=== PATIENT | male | born 1970 | race Caucasian/White ===

== ENCOUNTER → 2016-04-20 | Day surgery (SDC) | payer OTHER ==
[2016-04-04 10:11] VITALS: Ht 179.1 cm; Wt 95.5 kg
[~2016-04-20] VITALS: Ht 179.1 cm; Wt 95.5 kg
[~2016-04-20] MED LIST: AMT24 PO; BACL10TA PO; BACLOFEN PUMP INT SPINAL; CHOLCAP10 PO; DULO60CA44 PO; GABA-112 PO; GABA-113 PO; MIDAZOLAM HCL 1 MG/ML 2ML VIAL ONE; OMEG10007 PO; OMEP20CA9 PO; PRAV40TA2 PO; PRLSR20 PO; PROB1TAB16 PO; SERT50TA PO; SODIUM CHLORIDE 0.9% 500ML 500 ML IV ONE
--- NOTE | 2016-04-20 16:13 | Endo History and Physical ---
History & Physical Date of Service: Apr 20, 2016. Chief Complaint: CHANGE IN BOWEL HABITS Referring Physician: DR ZHENG History of Present Illness 45 yo CM who presents for Colonoscopy secondary to change in bowel habits. Past Medical History Neurological Disorder, Osteoporosis, Arthritis, Gastrointestinal Disorder, High Cholesterol, Other, Depression Past Surgical History Hx Cardiac Surgery: No Hx Internal Defibrillator: No Hx Pacemaker: No Hx Abdominal Surgery: No Hx of Implantable Prosthesis: No Hx Post-Op Nausea and Vomiting: No Hx Cancer Surgery: No Hx Thoracic Surgery: No Hx Orthopedic: Yes (PUMP INSERTION) Hx Urinary Tract Surgery: No Family History Colon CA Social History Smoking Status: Former Smoker Hx Substance Use: No Hx Alcohol Use: Yes (OCCASIONAL) Allergies Coded Allergies: Gluten (Unverified Allergy, Mild, RASH, 04/20/16) Lactose Intolerance (GI) (Verified Allergy, Mild, GI Issues, 04/20/16) NO KNOWN DRUG ALLERGIES (Verified Allergy, Unknown, ., 04/20/16) Current Medications Reported Home Medications Medications Dose Route/Sig Max Daily Dose Days Date Category Dose Instructions Probiotic (Probiotic Product) 1 Tab Tab 1 Tab PO QAM 04/04/16 Reported Pravastatin Sodium 40 Mg Tab 1 Tab PO HS 04/04/16 Reported Amitiza (Lubiprostone) 24 Mcg Cap 24 Mcg PO BID 04/04/16 Reported Cymbalta (Duloxetine Hcl) 60 Mg Cap 60 Mg PO QAM 04/04/16 Reported D 5000 (Cholecalciferol) 5,000 Unit Cap 1 Tab PO QAM 04/04/16 Reported Neurontin (Gabapentin) 100 Mg Cap 1-2 Tabs PO HS PRN 11/10/15 Reported [Baclofen Pump] INT SPINAL DAILY 10/21/13 Reported [place]-3 (Fish Oil) 1 Ea Cap 3 Cap PO BID 05/02/13 Reported 1000mg caps Vital Signs Weight (Kilograms): 95.45 Height (Feet): 5 Height (Inches): 10.5 Date Time Temp Pulse Resp B/P Pulse Ox O2 Delivery O2 Flow Rate FiO2 04/20/16 15:34 36.6 71 18 142/80 100 Room Air Physical Exam General Appearance: WD/WN, no apparent distress Respiratory/Chest: Auscultation: breath sounds normal Cardiovascular: Heart Auscultation: RRR Abdomen: Bowel Sounds: normal Inspection & Palpation: soft, non-distended, no tenderness, guarding & rebound Assessment and Plan Assessment: 45 yo CM who presents for Colonoscopy secondary to change in bowel habits. Plan: Proceed with colonoscopy.
--- NOTE | 2016-04-20 16:34 | Discharge Instructions ---
Endoscopy Patient Instructions Date / Procedure(s) Performed Apr 20, 2016. Colonoscopy Allergy Information Coded Allergies: Gluten (Unverified Allergy, Mild, RASH, 04/20/16) Lactose Intolerance (GI) (Verified Allergy, Mild, GI Issues, 04/20/16) NO KNOWN DRUG ALLERGIES (Verified Allergy, Unknown, ., 04/20/16) Discharge Date / Findings Apr 20, 2016. Diverticulosis Internal hemorrhoids Medication Instructions OK to resume all medications today as prescribed Reported Home Medications Medications Dose Route/Sig Max Daily Dose Days Date Category Dose Instructions Probiotic (Probiotic Product) 1 Tab Tab 1 Tab PO QAM 04/04/16 Reported Pravastatin Sodium 40 Mg Tab 1 Tab PO HS 04/04/16 Reported Amitiza (Lubiprostone) 24 Mcg Cap 24 Mcg PO BID 04/04/16 Reported Cymbalta (Duloxetine Hcl) 60 Mg Cap 60 Mg PO QAM 04/04/16 Reported D 5000 (Cholecalciferol) 5,000 Unit Cap 1 Tab PO QAM 04/04/16 Reported Neurontin (Gabapentin) 100 Mg Cap 1-2 Tabs PO HS PRN 11/10/15 Reported [Baclofen Pump] INT SPINAL DAILY 10/21/13 Reported [place]-3 (Fish Oil) 1 Ea Cap 3 Cap PO BID 05/02/13 Reported 1000mg caps Provider Instructions Activity Restrictions - No exercising or heavy lifting for 24 hours. - Do not drink alcohol the day of the procedure. - Do not drive a car or operate machinery until the day after the procedure. - Do not make any important decisions or sign important papers in 24 hours after the procedure. Following Day: - Return to full activity which may include returning to work/school. Diet Start your diet with liquids and light foods (jello, soup, juice, toast). Then eat your usual diet if not nauseated. Treatment For Common After Affects For mild abdominal pain, bloating, or excessive gas: - Rest - Eat lightly - Lie on right side Follow-Up Information Follow-up with DR ZHENG as scheduled Anesthesia Information What You Should Know You have had a procedure that required some medicine to reduce anxiety and discomfort. This treatment is called moderate sedation. After receiving the treatment, you may be sleepy, but you will be able to breathe on your own. The effects of the treatment may last for several hours. Follow these instructions along with Activity/Diet recommendations noted above: * Do NOT do anything where dizziness or clumsiness would be dangerous. * Rest quietly at home today, then you can be up and about tomorrow. * Have a responsible person stay with you the rest of today. * You may have had an I.V. today. If so, you may take the dressing off later today. Recommendations Call your doctor if: * Trouble breathing * Continuous vomiting for more than 24 hours * Temperature above 101 degrees * Severe abdominal pain or bloating * Pain not relieved by pain medicine ordered * There is increased drainage or redness from any incision * A large amount of rectal bleeding greater than 2-3 tablespoons. (If you had a polyp/s removed or have hemorrhoids, a small amount of blood - from the rectum is to be expected.) * You have any unanswered questions or concerns. IN THE EVENT OF A SERIOUS EMERGENCY, GO TO THE NEAREST EMERGENCY ROOM Your discharge instructions were prepared by provider Michael Khan. Patient Instructions Signature Page [place] Patient (or Guardian) Signature/Date: I have read and understand the instructions given to me by my caregivers. Caregiver/RN/Doctor Signature/Date: The above-named patient and/or guardian has received patient instructions on this date. + Original Patient Signature Page (only) stays with chart. Please make copy for patient.
--- NOTE | 2016-04-20 16:36 | GI REPORT ---
Procedure Date: 04/20/2016 4:11 PM Procedure: Colonoscopy Indications: Change in bowel habits Medicines: Monitored Anesthesia Care Complications: No immediate complications. Estimated Blood Loss: Estimated blood loss: none. Procedure: Pre-Anesthesia Assessment: - Prior to the procedure, a History and Physical was performed, and patient medications and allergies were reviewed. The patient's tolerance of previous anesthesia was also reviewed. The risks and benefits of the procedure and the sedation options and risks were discussed with the patient. All questions were answered, and informed consent was obtained. Prior Anticoagulants: The patient has taken no previous anticoagulant or antiplatelet agents. ASA Grade Assessment: II - A patient with mild systemic disease. After reviewing the risks and benefits, the patient was deemed in satisfactory condition to undergo the procedure. After I obtained informed consent, the scope was passed under direct vision. Throughout the procedure, the patient's blood pressure, pulse, and oxygen saturations were monitored continuously. The Scope was introduced through the anus and advanced to the terminal ileum. The colonoscopy was performed without difficulty. The patient tolerated the procedure well. The quality of the bowel preparation was good. The terminal ileum, ileocecal valve, appendiceal orifice, and rectum were photographed. Findings: Multiple small-mouthed diverticula were found in the sigmoid colon. Non-bleeding internal hemorrhoids were found during retroflexion. The hemorrhoids were small. Impression: - Diverticulosis in the sigmoid colon. - Non-bleeding internal hemorrhoids. - No specimens collected. Recommendation: - Resume previous diet. - Continue present medications. - Repeat colonoscopy in 10 years for surveillance. - Return to primary care physician as previously scheduled. Michael Khan, DO 04/20/2016 4:35:39 PM This report has been signed electronically. Note Initiated On: 04/20/2016 4:11 PM
[2016-04-20 17:05] VITALS: BP 119/70; PULSE 74; O2SAT 99
--- NOTE | 2016-04-20 17:06 | Anesthesiology Progress Note ---
Anesthesia Post Op Note Date & Time Apr 20, 2016 at 17:05 Vital Signs Pain Intensity: 0 Vital Signs Past 12 Hours Date Time Temp Pulse Resp B/P Pulse Ox O2 Delivery O2 Flow Rate FiO2 04/20/16 16:50 71 18 125/73 96 Room Air 04/20/16 16:35 65 18 101/63 99 Room Air 04/20/16 15:34 36.6 71 18 142/80 100 Room Air Notes Mental Status: alert / awake / arousable, participated in evaluation Pt Amnestic to Procedure: Yes Nausea / Vomiting: adequately controlled Pain: adequately controlled Airway Patency, RR, SpO2: stable & adequate BP & HR: stable & adequate Hydration State: stable & adequate Anesthetic Complications: no major complications apparent
== END | disposition home or self-care (01) ==
LOC: C.GI 14:35
PROVIDERS: ATTEND Internal Medicine
DX: R19.4 Change in bowel habit (principal); K57.30 Diverticulosis of large intestine without perforation or abscess without bleeding; K64.8 Other hemorrhoids; M81.0 Age-related osteoporosis without current pathological fracture; M19.90 Unspecified osteoarthritis, unspecified site; E78.00 Pure hypercholesterolemia, unspecified; F32.9 Major depressive disorder, single episode, unspecified; Z87.891 Personal history of nicotine dependence

== ENCOUNTER → 2016-05-12 | Outpatient (CLI) | payer OTHER ==
[~2016-05-12] MED LIST changes: -MIDAZOLAM HCL 1 MG/ML 2ML VIAL ONE; -SODIUM CHLORIDE 0.9% 500ML 500 ML IV ONE
[2016-05-12 12:04] LABS: URINE APPEARANCE CLOUDY (CLEAR); URINE BILIRUBIN NEG (NEG); URINE COLOR YELLOW; URINE EPITHELIAL CELL AUTO >30 /lpf (0-5); URINE NITRITE NEG (NEG); URINE SPECIFIC GRAVITY 1.001 (1.000-1.030); UROBILINOGEN NEG (NEG); ZZUR CULT IF INDIC CLEAN CATCH NO
[2016-05-12 12:07] LABS: MANUAL MICROSCOPIC REQUIRED? NO; REVIEW REQ? YES
[2016-05-12 12:25] LABS: URINE MUCUS PRESENT (NONE PRSENT)
== END | disposition home or self-care (01) ==
LOC: C.LABSPEC 11:17
PROVIDERS: ATTEND Family Medicine
DX: R39.9 Unspecified symptoms and signs involving the genitourinary system (principal); G35 Multiple sclerosis; M62.838 Other muscle spasm; K59.00 Constipation, unspecified; R53.83 Other fatigue; E73.9 Lactose intolerance, unspecified

== ENCOUNTER → 2016-05-19 | Outpatient (CLI) | payer OTHER ==
[2016-05-19 13:24] LABS: URINE APPEARANCE CLEAR (CLEAR); URINE BILIRUBIN NEG (NEG); URINE COLOR YELLOW; URINE EPITHELIAL CELL AUTO 0-5 /lpf (0-5); URINE NITRITE NEG (NEG); URINE PH 5.5 (4.5-7.5); UROBILINOGEN NEG (NEG); ZZUR CULT IF INDIC CLEAN CATCH NO
[2016-05-19 13:33] LABS: MANUAL MICROSCOPIC REQUIRED? NO; REVIEW REQ? NO
== END | disposition home or self-care (01) ==
LOC: C.LAB1850 11:13
PROVIDERS: ATTEND Family Medicine
DX: R39.9 Unspecified symptoms and signs involving the genitourinary system (principal); G35 Multiple sclerosis; M62.838 Other muscle spasm; K59.00 Constipation, unspecified; R53.83 Other fatigue; E73.9 Lactose intolerance, unspecified

== ENCOUNTER → 2016-08-02 | Outpatient (CLI) | payer OTHER ==
[~2016-08-02] MED LIST changes: -AMT24 PO; +CEFD300C2 PO; +LRS10 PO; -PROB1TAB16 PO; +SERT-234 PO; +[UNRECOGNIZED DRUG - CODE] IT
--- NOTE | 2016-08-02 12:13 | DIAGNOSTIC IMAGING REPORT ---
NUCLEAR GASTRIC EMPTYING STUDY CLINICAL HISTORY: Abdominal bloating. COMPARISON STUDY: KUB dated 12/25/2014. TECHNIQUE: Following the oral administration of 1.1 mCi of technetium 99m sulfur colloid in egg sandwich and 8 ounces of water, static abdominal images are obtained anteriorly and posteriorly at 0 minutes, 1 hour, 2 hour, and 4 hour time intervals. Gastric emptying was calculated utilizing the geometric mean method. FINDINGS: There is approximately 71% activity remaining at the 1 hour time interval, 43% remaining at the 2 hour time interval (normal is less than 60%), and 1% activity remaining at the 4 hour time interval (normal is less than 10%). IMPRESSION: Findings are consistent with normal gastric emptying for solids. Electronically signed by: Rolan Quinonez M.D. 08/02/2016 12:11 PM Dictated Date/Time: 08/02/2016 12:07 PM
[2016-08-05 15:32] LABS: IGA SERUM 311 mg/dL (81-463); TIS TRANS IGA 1 U/mL (<4)
== END | disposition home or self-care (01) ==
LOC: C.NUCL 06:44
PROVIDERS: ATTEND Physician Assistant
DX: R14.0 Abdominal distension (gaseous) (principal); K59.09 Other constipation

== ENCOUNTER → 2016-08-17 | Day surgery (SDC) | payer OTHER ==
[2016-08-09 14:44] VITALS: Ht 179.1 cm; Wt 83.6 kg
[~2016-08-17] VITALS: Ht 179.1 cm; Wt 83.6 kg
[~2016-08-17] MED LIST changes: +FENTANYL CITRATE INJ 50 MCG/1 ML 2 ML VIAL ONE; -GABA-112 PO; +LIDOCAINE HCL 2% 2 ML VIAL (20MG/ML) ONE; -OMEG10007 PO; +PROPOFOL IV EMULSION 10 MG/ML 20 ML VIAL IV ONE; +SODIUM CHLORIDE 0.9% 500ML 500 ML IV ONE
--- NOTE | 2016-08-17 12:39 | Endo History and Physical ---
History & Physical Date of Service: August 17, 2016. Chief Complaint: Abdominal Bloating Referring Physician: Dr. Malone History of Present Illness 45 yo CM who presents for EGD secondary to abdominal bloating. Past Medical History Neurological Disorder, Osteoporosis, Arthritis, Gastrointestinal Disorder, High Cholesterol, Other, Depression Past Surgical History Hx Cardiac Surgery: No Hx Internal Defibrillator: No Hx Pacemaker: No Hx Abdominal Surgery: No Hx Post-Op Nausea and Vomiting: No Hx Cancer Surgery: No Hx Thoracic Surgery: No Hx Orthopedic: Yes (PUMP INSERTION) Hx Urinary Tract Surgery: No Family History Colon [place] Social History Smoking Status: Former Smoker Hx Substance Use: No Hx Alcohol Use: Yes (OCCASIONAL) Allergies Coded Allergies: Gluten (Verified Allergy, Mild, RASH, 08/17/16) Lactose Intolerance (GI) (Verified Allergy, Mild, GI Issues, 08/17/16) NO KNOWN DRUG ALLERGIES (Verified Allergy, Unknown, ., 08/17/16) Current Medications Reported Home Medications Medications Dose Route/Sig Max Daily Dose Days Date Category Neurontin (Gabapentin) 300 Mg Cap 300 Mg PO HS 08/09/16 Reported Pravastatin Sodium 40 Mg Tab 1 Tab PO HS 04/04/16 Reported Cymbalta (Duloxetine Hcl) 60 Mg Cap 60 Mg PO QAM 04/04/16 Reported D 5000 (Cholecalciferol) 5,000 Unit Cap 1 Tab PO QAM 04/04/16 Reported [Baclofen Pump] INT SPINAL DAILY 10/21/13 Reported Vital Signs Weight (Kilograms): 83.64 Height (Feet): 5 Height (Inches): 10.5 Date Time Temp Pulse Resp B/P Pulse Ox O2 Delivery O2 Flow Rate FiO2 08/17/16 12:12 36.7 79 16 122/83 98 Room Air Physical Exam General Appearance: WD/WN, no apparent distress Respiratory/Chest: Auscultation: breath sounds normal Cardiovascular: Heart Auscultation: RRR Abdomen: Bowel Sounds: normal Inspection & Palpation: soft, non-distended, no tenderness, guarding & rebound Assessment and Plan Assessment: 45 yo CM who presents for EGD secondary to abdominal bloating. Plan: Proceed with EGD.
--- NOTE | 2016-08-17 12:50 | Discharge Instructions ---
Endoscopy Patient Instructions Date / Procedure(s) Performed August 17, 2016. EGD Allergy Information Coded Allergies: Gluten (Verified Allergy, Mild, RASH, 08/17/16) Lactose Intolerance (GI) (Verified Allergy, Mild, GI Issues, 08/17/16) NO KNOWN DRUG ALLERGIES (Verified Allergy, Unknown, ., 08/17/16) Discharge Date / Findings August 17, 2016. Duodenitis s/p biopsies Gastritis s/p biopsies Medication Instructions 1) Start Omeprazole 20mg by mouth each morning 1/2 hour prior to breakfast. 2) OK to resume all medications today as prescribed. Reported Home Medications Medications Dose Route/Sig Max Daily Dose Days Date Category Neurontin (Gabapentin) 300 Mg Cap 300 Mg PO HS 08/09/16 Reported Pravastatin Sodium 40 Mg Tab 1 Tab PO HS 04/04/16 Reported Cymbalta (Duloxetine Hcl) 60 Mg Cap 60 Mg PO QAM 04/04/16 Reported D 5000 (Cholecalciferol) 5,000 Unit Cap 1 Tab PO QAM 04/04/16 Reported [Baclofen Pump] INT SPINAL DAILY 10/21/13 Reported Provider Instructions Activity Restrictions - No exercising or heavy lifting for 24 hours. - Do not drink alcohol the day of the procedure. - Do not drive a car or operate machinery until the day after the procedure. - Do not make any important decisions or sign important papers in 24 hours after the procedure. Following Day: - Return to full activity which may include returning to work/school. Diet Start your diet with liquids and light foods (jello, soup, juice, toast). Then eat your usual diet if not nauseated. Treatment For Common After Affects For mild abdominal pain, bloating, or excessive gas: - Rest - Eat lightly - Lie on right side Follow-Up Information Follow-up with Dr. Malone as scheduled Anesthesia Information What You Should Know You have had a procedure that required some medicine to reduce anxiety and discomfort. This treatment is called moderate sedation. After receiving the treatment, you may be sleepy, but you will be able to breathe on your own. The effects of the treatment may last for several hours. Follow these instructions along with Activity/Diet recommendations noted above: * Do NOT do anything where dizziness or clumsiness would be dangerous. * Rest quietly at home today, then you can be up and about tomorrow. * Have a responsible person stay with you the rest of today. * You may have had an I.V. today. If so, you may take the dressing off later today. Recommendations Call your doctor if: * Trouble breathing * Continuous vomiting for more than 24 hours * Temperature above 101 degrees * Severe abdominal pain or bloating * Pain not relieved by pain medicine ordered * There is increased drainage or redness from any incision * A large amount of rectal bleeding greater than 2-3 tablespoons. (If you had a polyp/s removed or have hemorrhoids, a small amount of blood - from the rectum is to be expected.) * You have any unanswered questions or concerns. IN THE EVENT OF A SERIOUS EMERGENCY, GO TO THE NEAREST EMERGENCY ROOM Your discharge instructions were prepared by provider Michael Khan. Patient Instructions Signature Page [place] Patient (or Guardian) Signature/Date: I have read and understand the instructions given to me by my caregivers. Caregiver/RN/Doctor Signature/Date: The above-named patient and/or guardian has received patient instructions on this date. + Original Patient Signature Page (only) stays with chart. Please make copy for patient.
--- NOTE | 2016-08-17 12:55 | GI REPORT ---
Procedure Date: 08/17/2016 12:33 PM Procedure: Upper GI endoscopy Indications: Abdominal bloating Medicines: Monitored Anesthesia Care Complications: No immediate complications. Estimated Blood Loss: Estimated blood loss: none. Procedure: Pre-Anesthesia Assessment: - Prior to the procedure, a History and Physical was performed, and patient medications and allergies were reviewed. The patient's tolerance of previous anesthesia was also reviewed. The risks and benefits of the procedure and the sedation options and risks were discussed with the patient. All questions were answered, and informed consent was obtained. Prior Anticoagulants: The patient has taken no previous anticoagulant or antiplatelet agents. ASA Grade Assessment: III - A patient with severe systemic disease. After reviewing the risks and benefits, the patient was deemed in satisfactory condition to undergo the procedure. After obtaining informed consent, the endoscope was passed under direct vision. Throughout the procedure, the patient's blood pressure, pulse, and oxygen saturations were monitored continuously. The scope was introduced through the mouth, and advanced to the second part of duodenum. The upper GI endoscopy was accomplished without difficulty. The patient tolerated the procedure well. Findings: The examined esophagus was normal. Localized mild inflammation characterized by erythema was found in the gastric antrum. Biopsies were taken with a cold forceps for histology. Localized mild inflammation characterized by erosions and erythema was found in the first part of the duodenum. Biopsies for histology were taken with a cold forceps for evaluation of celiac disease. Impression: - Normal esophagus. - Gastritis. Biopsied. - Duodenitis. Biopsied. Recommendation: - Resume previous diet. - Continue present medications. - Await pathology results. - Return to GI clinic as previously scheduled. Michael Khan, DO 08/17/2016 12:55:38 PM This report has been signed electronically. Note Initiated On: 08/17/2016 12:33 PM I attest to the content of the Intraoperative Record and orders documented therein, exceptions below
[2016-08-17 13:10] VITALS: BP 136/89; PULSE 78; O2SAT 98
--- NOTE | 2016-08-17 15:01 | Anesthesiology Progress Note ---
Anesthesia Post Op Note Date & Time August 17, 2016 at 15:00 Vital Signs Pain Intensity: 2 Vital Signs Past 12 Hours Date Time Temp Pulse Resp B/P Pulse Ox O2 Delivery O2 Flow Rate FiO2 08/17/16 13:10 78 16 136/89 98 Room Air 08/17/16 13:00 80 16 111/89 98 Room Air 08/17/16 12:50 90 16 112/75 96 Room Air 08/17/16 12:12 36.7 79 16 122/83 98 Room Air Notes Mental Status: alert / awake / arousable, participated in evaluation Pt Amnestic to Procedure: Yes Nausea / Vomiting: adequately controlled Pain: adequately controlled Airway Patency, RR, SpO2: stable & adequate BP & HR: stable & adequate Hydration State: stable & adequate Anesthetic Complications: no major complications apparent
== END | disposition home or self-care (01) ==
LOC: C.GI 11:52
PROVIDERS: ATTEND Internal Medicine
DX: K29.50 Unspecified chronic gastritis without bleeding (principal); K29.80 Duodenitis without bleeding; E78.00 Pure hypercholesterolemia, unspecified; F32.9 Major depressive disorder, single episode, unspecified; M81.0 Age-related osteoporosis without current pathological fracture; R29.818 Other symptoms and signs involving the nervous system; M19.90 Unspecified osteoarthritis, unspecified site; Z87.891 Personal history of nicotine dependence; Z79.899 Other long term (current) drug therapy

== ENCOUNTER → 2017-02-08 | Outpatient (CLI) | payer OTHER ==
[~2017-02-08] MED LIST changes: -CEFD300C2 PO; -CHOLCAP10 PO; -DULO60CA44 PO; -FENTANYL CITRATE INJ 50 MCG/1 ML 2 ML VIAL ONE; -GABA-113 PO; -LIDOCAINE HCL 2% 2 ML VIAL (20MG/ML) ONE; -LRS10 PO; -PRLSR20 PO; -PROPOFOL IV EMULSION 10 MG/ML 20 ML VIAL IV ONE; -SERT-234 PO; -SODIUM CHLORIDE 0.9% 500ML 500 ML IV ONE; -[UNRECOGNIZED DRUG - CODE] IT
--- NOTE | 2017-02-08 12:55 | DIAGNOSTIC IMAGING REPORT ---
R ELBOW MIN 3 VIEWS ROUTINE CLINICAL HISTORY: G35 Multiple [id number] Fall from wheelchairright trauma COMPARISON: None. DISCUSSION: Moderate degenerative change of the articular services throughout. No evidence for fracture or dislocation. Cortical margins appear to be intact. IMPRESSION: Moderate degenerative change. No acute process. The above report was generated using voice recognition software. It may contain grammatical, syntax or spelling errors. Electronically signed by: Ashwin Dewitt M.D. 02/08/2017 12:53 PM Dictated Date/Time: 02/08/2017 12:51 PM
== END | disposition home or self-care (01) ==
LOC: C.RADBC 12:38
PROVIDERS: ATTEND Internal Medicine
DX: G35 Multiple sclerosis (principal); W05.0XXA Fall from non-moving wheelchair, initial encounter

== ENCOUNTER 2017-03-04 20:29 | Emergency (ER) | payer OTHER ==
[~2017-03-04] VITALS: Ht 177.8 cm; Wt 75.0 kg
[2017-03-04 20:35] VITALS: TEMP 36.5; Ht 177.8 cm; Wt 75.0 kg
[2017-03-04 20:50] VITALS: O2SAT 100
--- NOTE | 2017-03-04 20:57 | EMERGENCY ROOM VISIT NOTE ---
History Report prepared by Gwendolyn: Roger Lyons Under the Supervision of: Dr. Rolan Waters M.D. First contact with patient: 20:45 Chief Complaint: RESPIRATORY PROBLEMS Stated Complaint: SHORTNESS OF BREATH, WOKE UP HOT Nursing Triage Summary: pt to triage via reports hx of MS and woke up this AM feeling increased difficulty breathing . pt reports on baclofen pump also History of Present Illness The patient is a 46 year old male who presents to the Emergency Room with complaints of constant SOB beginning this morning. The patient notes that his symptoms started this morning when he woke up and he feels like he cannot get enough air. He notes that he is on a Baclofen pump and just had the dosage of Baclofen increased 3 days ago. He also complains of lower back pain and face pain. He denies any cough, fever, urinary symptoms, vomiting, and diarrhea. He reports that he has MS and is immobile. He denies any history of blood clots, asthma, and COPD. Source of History: patient Onset: this morning Position: chest Quality: other (SOB) Timing: constant Associated Symptoms: + back pain (lower), No fevers, No cough, No vomiting, No diarrhea, No urinary symptoms Note: He also complains of facial pain. Review of Systems See HPI for pertinent positives & negatives. A total of 10 systems reviewed and were otherwise negative. Past Medical & Surgical Multiple sclerosis Family History No pertinent family history stated. Social History Smoking Status: Never Smoker Marital Status: Housing Status: lives with family Current/Historical Medications Scheduled Baclofen (Lioresal Intrathecal), 921.8 MCG IT Q24H Cefdinir (Omnicef), 300 MG PO Q12H Omeprazole (Prilosec), 1 CAP PO QAM Pravastatin Sodium (Pravastatin Sodium), 1 TAB PO HS Sertraline (Zoloft), 100 MG PO QAM Allergies Coded Allergies: CI Pigment Blue 63 (Verified Allergy, Intermediate, "FELT VERY BAD", 03/04) Duloxetine (Verified Allergy, Intermediate, "FELT VERY BAD", 03/04/17) Gabapentin (Verified Allergy, Intermediate, DELIRIUM-"FELT VERY BAD"., ) Physical Exam Vital Signs Date Time Temp Pulse Resp B/P (MAP) Pulse Ox O2 Delivery O2 Flow Rate FiO2 03/04/17 22:16 87 20 137/86 97 Room Air 03/04/17 21:31 77 20 126/86 95 Room Air 03/04/17 20:51 100 Nasal Cannula 2.0 03/04/17 20:50 100 Nasal Cannula 2.0 03/04/17 20:50 94 22 131/108 100 Room Air 03/04/17 20:49 100 Room Air 03/04/17 20:45 91 03/04/17 20:35 36.5 93 24 138/74 98 Room Air Physical Exam GENERAL: Patient is in no acute distress. HEENT: No acute trauma, normocephalic atraumatic, mucous membranes moist, no nasal congestion, no scleral icterus. NECK: No stridor, no adenopathy, no meningismus, trachea is midline. LUNGS: Clear to auscultation bilaterally, no wheeze, no rhonchi, breath sounds equal. HEART: Without murmurs gallops or rubs, regular rate and rhythm. ABDOMEN: Soft, nontender, bowel sounds positive, no hernias, no peritonitis. EXTREMITIES: No cyanosis or edema, full range of motion of all the joints without pain or difficulty, no signs for acute trauma. NEUROLOGIC: Significant weakness to upper and lower extremities more so to lower extremities, consistent with severe MS, awake, alert, slight speech slur. SKIN: No rash, no jaundice, no diaphoresis. Medical Decision & Procedures ER Provider Diagnostic Interpretation: Radiology results as stated below per my review and radiologist interpretation: CHEST CTA for PULMONARY ARTERIES FINDINGS: There is a normal caliber thoracic aorta with no evidence for dissection. There is no evidence for pulmonary embolus. No pleural effusions. No pneumothorax. The liver and spleen are unremarkable. No mediastinal or hilar lymphadenopathy. The central airways are patent. There is an intrathecal catheter identified with the tip terminating at the T7 level. Left subclavian Port-A-Cath terminates in the SVC. There are few scattered punctate calcified granulomas within the lungs. No focal lung consolidations. Calcified mediastinal lymph nodes. IMPRESSION: No evidence for pulmonary embolus. Electronically signed by: Anuj Dutta M.D. 03/04/2017 10:28 PM CHEST ONE VIEW PORTABLE FINDINGS: Left subclavian Port-A-Cath terminates in the distal SVC. No pneumothorax. No pleural effusions. The heart is normal in size. Stable calcified granuloma within the left lower lobe. The right lung is clear. IMPRESSION: No significant change compared to the prior study. No acute process. Electronically signed by: Anuj Dutta M.D. 03/04/2017 9:42 PM Laboratory Results 03/04/17 21:05 Red Blood Count 5.46, Mean Corpuscular Volume 90.3, Mean Corpuscular Hemoglobin 30.2, Mean Corpuscular Hemoglobin Concent 33.5, Mean Platelet Volume 10.9, Neutrophils (%) (Auto) 64.2, Lymphocytes (%) (Auto) 26.9, Monocytes (%) (Auto) 6.9, Eosinophils (%) (Auto) 1.6, Basophils (%) (Auto) 0.3, Neutrophils # (Auto) 4.36, Lymphocytes # (Auto) 1.83, Monocytes # (Auto) 0.47, Eosinophils # (Auto) 0.11, Basophils # (Auto) 0.02 03/04/17 21:05 Test 03/04/17 21:05 03/04/17 21:20 White Blood Count 6.80 K/uL (4.8-10.8) Red Blood Count 5.46 M/uL (4.7-6.1) Hemoglobin 16.5 g/dL (14.0-18.0) Hematocrit 49.3 % (42-52) Mean Corpuscular Volume 90.3 fL (80-100) Mean Corpuscular Hemoglobin 30.2 pg (25-34) Mean Corpuscular Hemoglobin Concent 33.5 g/dl (32-36) Platelet Count 212 K/uL (130-400) Mean Platelet Volume 10.9 fL (7.4-10.4) Neutrophils (%) (Auto) 64.2 % Lymphocytes (%) (Auto) 26.9 % Monocytes (%) (Auto) 6.9 % Eosinophils (%) (Auto) 1.6 % Basophils (%) (Auto) 0.3 % Neutrophils # (Auto) 4.36 K/uL (1.4-6.5) Lymphocytes # (Auto) 1.83 K/uL (1.2-3.4) Monocytes # (Auto) 0.47 K/uL (0.11-0.59) Eosinophils # (Auto) 0.11 K/uL (0-0.5) Basophils # (Auto) 0.02 K/uL (0-0.2) RDW Standard Deviation 43.9 fL (36.4-46.3) RDW Coefficient of Variation 13.4 % (11.5-14.5) Immature Granulocyte % (Auto) 0.1 % Immature Granulocyte # (Auto) 0.01 K/uL (0.00-0.02) Anion Gap 7.0 mmol/L (3-11) Est Creatinine Clear Calc Drug Dose 99.3 ml/min Estimated GFR () 109.4 Estimated GFR (Non- 94.4 BUN/Creatinine Ratio 10.9 (10-20) Calcium Level 9.6 mg/dl (8.5-10.1) Magnesium Level 2.3 mg/dl (1.8-2.4) Total Bilirubin 0.3 mg/dl (0.2-1) Aspartate Amino Transf (AST/SGOT) 18 U/L (15-37) Alanine Aminotransferase (ALT/SGPT) 28 U/L (12-78) Alkaline Phosphatase 123 U/L (45-117) Troponin I < 0.015 ng/ml (0-0.045) Total Protein 8.3 gm/dl (6.4-8.2) Albumin 3.8 gm/dl (3.4-5.0) Globulin 4.5 gm/dl (2.5-4.0) Albumin/Globulin Ratio 0.8 (0.9-2) Urine Color YELLOW Urine Appearance CLEAR (CLEAR) Urine pH 8.0 (4.5-7.5) Urine Specific [place] 1.009 (1.000-1.030) Urine Protein NEG (NEG) Urine Glucose (UA) NEG (NEG) Urine Ketones NEG (NEG) Urine Occult Blood NEG (NEG) Urine Nitrite POS (NEG) Urine Bilirubin NEG (NEG) Urine Urobilinogen NEG (NEG) Urine Leukocyte Esterase LARGE (NEG) Urine WBC (Auto) >30 /hpf (0-5) Urine RBC (Auto) 0-4 /hpf (0-4) Urine Hyaline Casts (Auto) 1-5 /lpf (0-5) Urine Epithelial Cells (Auto) 0-5 /lpf (0-5) Urine Bacteria (Auto) 1+ (NEG) Laboratory results reviewed by me. Medications Administered Medications (Trade) Dose Ordered Sig/Osorio Route Start Time Stop Time Status Last Admin Dose Admin Ceftriaxone Sodium (Rocephin Inj) 1 gm NOW STAT IV 03/04/17 22:18 03/04/17 22:19 DC 03/04/17 22:28 1 GM ECG Rate (beats per minute): 79 Rhythm: normal sinus Findings: no acute ischemic change, no ectopy, other (nonspecific ST change) ED Course 2046: The patient was evaluated in room C6. A complete history and physical exam was performed. 2100: I spoke to Dr. Lara - Pain Management, [facility] [place], [place]. She knows the patient well. She says that if there was a problem with the patient's pump, it would have given him difficulty that day and not a few days later. 2217: Rocephin Inj 1gm IV 2239: I reevaluated and updated the patient. 2250: Reevaluated the patient. Discussed results and discharge instructions: He verbalized understanding and agreement. The patient is ready for discharge. Medical Decision Differential diagnoses include: medication reaction, anemia, electrolyte imbalance, dysrhythmia, infection, pneumonia, and PE. There is no leukocytosis or concerning anemia. No significant electrolyte abnormality, kidney failure or hepatitis. Urinalysis does suggest infection. Urine culture is pending. Chest film does not show pneumonia or CHF. EKG shows a normal sinus rhythm, no acute ischemia. Cardiac enzyme testing times one is not consistent with acute cardiac injury. Chest CT did not show evidence for PE or pneumonia. The patient was not hypoxic or toxic, his lungs sounded clear. The patient did receive IV ceftriaxone for the presumed UTI. I did speak with pain management. The baclofen pump adjustment was not felt the cause of his dyspnea as the feeling of shortness of breath was felt to be too far out from the initial pump change. Basically, if the baclofen was responsible, his dyspnea should've started the same day the pump was adjusted. The patient is stable, I do think he can be discharged. The UTI may be causing his symptoms--of note, he states he does not self cath but is able to urinate on his own, he does have a history of previous UTI. This infection may be worsening his MS. The patient is being discharged on Omnicef. He will follow with his doctor this week as well as pain management. If he has fever, lack of improvement or worsening symptoms, he will report back to the ER for reassessment. Medication Reconcilliation Current Medication List: was personally reviewed by me Blood Pressure Screening Patient's blood pressure: Elevated blood pressure Blood pressure disposition: Elevated BP felt to be situational Impression Primary Impression: SOB (shortness of breath) Additional Impressions: Multiple sclerosis UTI (urinary tract infection) Scribe Attestation The scribe's documentation has been prepared under my direction and personally reviewed by me in its entirety. I confirm that the note above accurately reflects all work, treatment, procedures, and medical decision making performed by me. Departure Information Dispostion Home / Self-Care Prescriptions Cefdinir (OMNICEF) 300 Mg Cap 300 MG PO Q12H for 10 Days, #20 CAP Prov: Rolan Watres M.D. 03/04/17 Referrals ProRussell M.D. (PCP) Forms HOME CARE DOCUMENTATION FORM, IMPORTANT VISIT INFORMATION, WORK / SCHOOL INSTRUCTIONS Patient Instructions My [facility] Additional Instructions consider seeing pain management tomorrow to have your pump checked omnicef 2x per day for 10 days stay well hydrated see abundio overton this week for a recheck return if worsening, have fever, or if not improving Problem Qualifiers
[2017-03-04] MEDS ORDERED: SERT-234 PO (21:09)
[2017-03-04] MEDS ORDERED: [UNRECOGNIZED DRUG - CODE] IT (21:09)
[2017-03-04 21:26] LABS: BASO % 0.3 %; BASO ABS # 0.02 K/uL (0-0.2); COMPLETE YES; EOS % 1.6 %; HEMATOCRIT 49.3 % (42-52); IG% 0.1 %; LYMPH % 26.9 %; LYMPH ABS # 1.83 K/uL (1.2-3.4); MEAN CELL VOLUME 90.3 fL (80-100); MEAN CORPUSCULAR HEMOGLOBIN 30.2 pg (25-34); MEAN CORPUSCULAR HGB CONC 33.5 g/dl (32-36); MEAN PLATELET VOLUME 10.9 fL (7.4-10.4); MONO % 6.9 %; NEUT % 64.2 %; PLATELET COUNT 212 K/uL (130-400); RED BLOOD COUNT 5.46 M/uL (4.7-6.1)
[2017-03-04] MEDS ORDERED: OPTIRAY 320 IV PRN (21:30)
[2017-03-04 21:41] LABS: URINE APPEARANCE CLEAR (CLEAR); URINE BILIRUBIN NEG (NEG); URINE COLOR YELLOW; URINE EPITHELIAL CELL AUTO 0-5 /lpf (0-5); URINE NITRITE POS (NEG); URINE SPECIFIC GRAVITY 1.009 (1.000-1.030); UROBILINOGEN NEG (NEG); ZZURINE CULT IF INDIC CATH YES
--- NOTE | 2017-03-04 21:43 | DIAGNOSTIC IMAGING REPORT ---
CHEST ONE VIEW PORTABLE HISTORY: EVALUATE RESPIRATORY DISTRESS.DYSPNEA COMPARISON: Chest 03/24/2016. FINDINGS: Left subclavian Port-A-Cath terminates in the distal SVC. No pneumothorax. No pleural effusions. The heart is normal in size. Stable calcified granuloma within the left lower lobe. The right lung is clear. IMPRESSION: No significant change compared to the prior study. No acute process. Electronically signed by: Anuj Dutta M.D. 03/04/2017 9:42 PM Dictated Date/Time: 03/04/2017 9:41 PM
[2017-03-04 21:44] LABS: ALT/SGPT 28 U/L (12-78); BLOOD UREA NITROGEN 11 mg/dl (7-18); BUN/CREATININE RATIO 10.9 (10-20); CALCIUM 9.6 mg/dl (8.5-10.1); CARBON DIOXIDE 32 mmol/L (21-32); CHLORIDE 100 mmol/L (98-107); CREATININE 0.96 mg/dl (0.60-1.40); GLUCOSE 99 mg/dl (70-99); MAGNESIUM 2.3 mg/dl (1.8-2.4); POTASSIUM 4.2 mmol/L (3.5-5.1); SODIUM 139 mmol/L (136-145)
[2017-03-04 21:48] LABS: MANUAL MICROSCOPIC REQUIRED? NO; REVIEW REQ? NO
[2017-03-04 21:49] LABS: ALB/GLOB RATIO 0.8 (0.9-2); ALKALINE PHOSPHATASE 123 U/L (45-117); AST/SGOT 18 U/L (15-37)
[2017-03-04] MEDS ORDERED: CEFTRIAXONE SOD INJ 1 GM ADDVIAL IV STA (22:18)
--- NOTE | 2017-03-04 22:29 | DIAGNOSTIC IMAGING REPORT ---
CHEST CTA for PULMONARY ARTERIES CT DOSE: 365.10 mGy.cm HISTORY: Short of breath. TECHNIQUE: Multiaxial CT images of the chest were performed following the intravenous administration of contrast to evaluate the pulmonary arteries. Maximal intensity projection images were also obtained. A dose lowering technique was utilized adhering to the principles of ALARA. COMPARISON STUDY: Chest 03/04/2017. FINDINGS: There is a normal caliber thoracic aorta with no evidence for dissection. There is no evidence for pulmonary embolus. No pleural effusions. No pneumothorax. The liver and spleen are unremarkable. No mediastinal or hilar lymphadenopathy. The central airways are patent. There is an intrathecal catheter identified with the tip terminating at the T7 level. Left subclavian Port-A-Cath terminates in the SVC. There are few scattered punctate calcified granulomas within the lungs. No focal lung consolidations. Calcified mediastinal lymph nodes. IMPRESSION: No evidence for pulmonary embolus. Electronically signed by: Anuj Dutta M.D. 03/04/2017 10:28 PM Dictated Date/Time: 03/04/2017 10:17 PM
[2017-03-04] MEDS ORDERED: CEFD300C2 PO (22:49)
[2017-03-04 23:12] VITALS: BP 124/85; PULSE 92; O2SAT 97
--- NOTE | 2017-03-06 12:16 | Pharmacy Progress Note ---
ED Pharmacist Culture FollowUp Date of Service: Mar 06, 2017. Patient was sent home with a prescription for Cefdinir 300mg PO BID x 10 days, which should cover the e coli growing from the patient's URINE culture.
[2017-03-06] MEDS ORDERED: LRS10 PO (13:28)
== END 2017-03-04 23:13 | disposition home or self-care (01) ==
LOC: C.EDB 20:30 → C.EDC 23:13
DX: R06.02 Shortness of breath (principal); N39.0 Urinary tract infection, site not specified; G35 Multiple sclerosis

== ENCOUNTER → 2017-03-19 | Outpatient (CLI) | payer OTHER ==
[~2017-03-19] MED LIST changes: -BACL10TA PO; -BACLOFEN PUMP INT SPINAL; +LRS10 PO; +SERT-234 PO; -SERT50TA PO; +[UNRECOGNIZED DRUG - CODE] IT
[2017-03-19 17:01] LABS: BASO % 0.3 %; BASO ABS # 0.02 K/uL (0-0.2); COMPLETE YES; EOS % 1.6 %; HEMATOCRIT 44.7 % (42-52); LYMPH % 29.9 %; LYMPH ABS # 2.01 K/uL (1.2-3.4); MEAN CELL VOLUME 88.2 fL (80-100); MEAN CORPUSCULAR HEMOGLOBIN 29.6 pg (25-34); MEAN CORPUSCULAR HGB CONC 33.6 g/dl (32-36); MEAN PLATELET VOLUME 11.3 fL (7.4-10.4); MONO % 7.3 %; NEUT % 60.9 %; PLATELET COUNT 235 K/uL (130-400); RED BLOOD COUNT 5.07 M/uL (4.7-6.1); WHITE BLOOD COUNT 6.72 K/uL (4.8-10.8)
[2017-03-19 17:08] LABS: ALT/SGPT 24 U/L (12-78); AST/SGOT 12 U/L (15-37); BLOOD UREA NITROGEN 8 mg/dl (7-18); BUN/CREATININE RATIO 13.8 (10-20); CALCIUM 9.1 mg/dl (8.5-10.1); CARBON DIOXIDE 32 mmol/L (21-32); CHLORIDE 102 mmol/L (98-107); GLUCOSE 81 mg/dl (70-99); POTASSIUM 3.8 mmol/L (3.5-5.1); SODIUM 137 mmol/L (136-145)
[2017-03-19 17:11] LABS: ALKALINE PHOSPHATASE 109 U/L (45-117); CHOLESTEROL 225 mg/dl (0-200); CHOLESTEROL/HDL RATIO 4.2; HDL CHOLESTEROL 53 mg/dl; LDL CHOLESTEROL CALCULATED 131 mg/dl; TRIGLYCERIDES 204 mg/dl (0-150); VERY LOW DENSITY LIPOPROT CALC 41 mg/dl
[2017-03-19 17:36] LABS: URINE APPEARANCE CLEAR (CLEAR); URINE BILIRUBIN NEG (NEG); URINE COLOR YELLOW; URINE NITRITE NEG (NEG); UROBILINOGEN NEG (NEG)
[2017-03-19 17:44] LABS: MANUAL MICROSCOPIC REQUIRED? NO; REVIEW REQ? NO
== END | disposition home or self-care (01) ==
LOC: C.LAB1850 15:56
PROVIDERS: ATTEND Internal Medicine
DX: N39.0 Urinary tract infection, site not specified (principal); E78.5 Hyperlipidemia, unspecified; G35 Multiple sclerosis; E55.9 Vitamin D deficiency, unspecified

== ENCOUNTER → 2017-03-21 | Outpatient (CLI) | payer OTHER ==
[2017-03-21 19:12] LABS: LYME DISEASE AB IGG NEG (NEG); LYME DISEASE AB IGM NEG (NEG)
== END | disposition home or self-care (01) ==
LOC: C.LAB1850 17:10
PROVIDERS: ATTEND Internal Medicine
DX: M25.50 Pain in unspecified joint (principal)

== ENCOUNTER → 2017-05-09 | Outpatient (CLI) | payer OTHER ==
[~2017-05-09] MED LIST changes: +ATR25 PO; +BUSP15TA70 PO; +CHOL1000 PO; +CHOL2000 PO; +MELATAB2 PO; +OCRE300I IV; +PROB1TAB16 PO; -SERT-234 PO
[2017-05-09 16:52] LABS: BASO % 0.4 %; BASO ABS # 0.02 K/uL (0-0.2); EOS % 1.2 %; EOS ABS # 0.06 K/uL (0-0.5); HEMATOCRIT 45.7 % (42-52); HEMOGLOBIN 15.9 g/dL (14.0-18.0); IG# 0.01 K/uL (0.00-0.02); LYMPH % 25.4 %; LYMPH ABS # 1.25 K/uL (1.2-3.4); MEAN CORPUSCULAR HEMOGLOBIN 30.3 pg (25-34); MEAN CORPUSCULAR HGB CONC 34.8 g/dl (32-36); MEAN PLATELET VOLUME 11.1 fL (7.4-10.4); MONO ABS # 0.49 K/uL (0.11-0.59); NEUT % 62.8 %; NEUT ABS # 3.09 K/uL (1.4-6.5); PLATELET COUNT 231 K/uL (130-400); RED CELL DISTRIBUTION WIDTH CV 13.2 % (11.5-14.5); RED CELL DISTRIBUTION WIDTH SD 41.8 fL (36.4-46.3); WHITE BLOOD COUNT 4.92 K/uL (4.8-10.8)
[2017-05-09 17:07] LABS: BLOOD UREA NITROGEN 12 mg/dl (7-18); CALCIUM 9.6 mg/dl (8.5-10.1); CARBON DIOXIDE 29 mmol/L (21-32); CREATININE 0.83 mg/dl (0.60-1.40); GLUCOSE 74 mg/dl (70-99); POTASSIUM 4.1 mmol/L (3.5-5.1); SODIUM 135 mmol/L (136-145)
[2017-05-10 06:40] LABS: HEMOGLOBIN A1C 5.5 % (4.5-5.6)
== END | disposition home or self-care (01) ==
LOC: C.LABBC 14:23
PROVIDERS: ATTEND Nurse Practitioner Adult Health
DX: R73.9 Hyperglycemia, unspecified (principal); M62.81 Muscle weakness (generalized)

== ENCOUNTER → 2017-08-08 | Outpatient (CLI) | payer OTHER ==
[~2017-08-08] MED LIST changes: -OMEP20CA9 PO
== END | disposition home or self-care (01) ==
LOC: C.LAB 14:30
PROVIDERS: ATTEND Nurse Practitioner Adult Health
DX: M25.50 Pain in unspecified joint (principal); G47.00 Insomnia, unspecified; M62.81 Muscle weakness (generalized); E78.5 Hyperlipidemia, unspecified; E55.9 Vitamin D deficiency, unspecified; G35 Multiple sclerosis

== ENCOUNTER → 2017-08-20 | Outpatient (CLI) | payer OTHER ==
[~2017-08-20] MED LIST changes: +GADAVIST IV PRN; +NRN100 PO; +ROPI0.5T15 PO
--- NOTE | 2017-08-20 12:48 | DIAGNOSTIC IMAGING REPORT ---
MRI CERVICAL SPINE COMBO CLINICAL HISTORY: G35 MULTIPLE SCLEROSIS. RECENT FLAREUP. CHANGE IN MEDICATION APRIL 2017 TECHNIQUE: Sagittal and axial T1, T2 and STIR images were obtained. Imaging was acquired before and after the demonstration of 8 cc of intravenous Gadavist COMPARISON STUDY: 02/06/2017 There are no suspicious areas of marrow replacement. There are extensive foci of abnormal increased T2 signal within the spinal cord. These involve the distal, cervicomedullary junction, and multifocal areas extending from C2 to T2. The findings remain similar to the preceding study. No pathologic enhancement is demonstrated. C2-3: There is a tiny left posterior lateral disc protrusion. There is no significant spinal or foraminal stenosis C3-4: There is no evidence of disc bulge or focal herniation. There is no spinal or foraminal stenosis. C4-5: There are no disc bulges or focal herniations. There is no spinal stenosis. There is minor right-sided foraminal narrowing C5-6 :There is a mild circumferential disc bulge. There is no significant spinal stenosis. There is mild bilateral foraminal narrowing C6-7: There is a mild circumferential disc bulge. There is no spinal stenosis. There is minor bilateral foraminal narrowing. C7-T1: There is no evidence of disc bulge or focal herniation. There is no evidence of spinal or foraminal stenosis. IMPRESSION: 1. Stable extensive foci of abnormal increased T2 signal throughout the lower brainstem and cervical spinal cord. No current evidence of pathologic enhancement. The findings are consistent with the clinical diagnosis of demyelinating disease. 2. Stable mild multilevel spondylitic changes. Electronically signed by: Castillo Moreira M.D. 08/20/2017 12:46 PM Dictated Date/Time: 08/20/2017 12:40 PM
--- NOTE | 2017-08-20 13:19 | DIAGNOSTIC IMAGING REPORT ---
Brain MRI WITH AND WITHOUT CONTRAST HISTORY: Multiple sclerosis. Follow-up. TECHNIQUE: Multiplanar multisequence MRI of the brain was performed both before and after the intravenous administration of contrast. COMPARISON STUDY: Brain MRI 02/06/2017. FINDINGS: There is no mass, hematoma, midline shift, acute infarct. Ventricles and sulci are within normal limits. Major vascular flow-voids at the skull base are well-maintained. Stable 1.4 cm retention cyst within the left maxillary sinus. The mastoid air cells are clear. Postcontrast sequences show no areas of abnormal enhancement. There again noted multiple scattered white matter plaques seen throughout the supratentorial and infratentorial brain as well as the cervical medullary junction. These velocities change in size are not compared to the prior study. This is most pronounced within the cerebellar hemispheres and subcortical white matter. IMPRESSION: No significant change in the scattered white matter plaques seen throughout the brain consistent with the patient's history of multiple sclerosis. No areas of enhancement to suggest active demyelination. Electronically signed by: Anuj Dutta M.D. 08/20/2017 1:18 PM Dictated Date/Time: 08/20/2017 1:09 PM
== END | disposition home or self-care (01) ==
LOC: C.MRIBC 10:44
PROVIDERS: ATTEND Psychiatry & Neurology Neurology
DX: G35 Multiple sclerosis (principal)

== ENCOUNTER 2022-02-03 17:46 | Inpatient (IN) ==
[2022-02-03] MEDS ORDERED: SODIUM CHLORIDE 0.9% 500 ML IV STA (18:12)
[2022-02-03 18:26] LABS: Basophils # (auto) 0.01 K/uL (0-0.2); Basophils % (auto) 0.2 %; Eosinophils # (auto) 0.01 K/uL (0-0.50); Eosinophils % (auto) 0.2 %; Hematocrit (blood only) 46.2 % (40.1-51.0); Hemoglobin 15.6 g/dl (14.0-18.0); Immature Granulocytes # (auto) 0.01 K/uL (0.00-0.02); Immature Granulocytes % (auto) 0.2 %; Lymphocytes # (auto) 0.38 K/uL (1.2-3.4); Lymphocytes % (auto) 8.3 %; Mean Corpuscular Hemoglobin 30.2 pg (25.0-34.0); Mean Corpuscular Hgb Conc 33.8 g/dL (32.0-36.0); Mean Corpuscular Volume 89.5 fL (80.0-100.0); Mean Platelet Volume 10.3 fL (9.4-12.4); Monocytes # (auto) 0.62 K/uL (0.24-0.82); Monocytes % (auto) 13.5 %; Neutrophils # (auto) 3.56 K/uL (1.4-6.5); Neutrophils % (auto) 77.6 %; Platelet Count 184 K/uL (130-400); RDW Coefficient of Variation 13.6 % (11.5-14.5); RDW Standard Deviation 44.6 fL (36.4-46.3); Red Blood Count 5.16 M/uL (4.63-6.08); White Blood Count 4.59 K/ul (4.8-10.8)
[2022-02-03 18:44] LABS: Alanine Aminotransferase 27 U/L (7-52); Albumin Globulin Ratio 1.4 (0.9-2); Alkaline Phosphatase 98 U/L (34-104); Anion Gap 12 (3-11); Aspartate Aminotransferase 31 U/L (13-39); Bilirubin,Total 0.5 mg/dl (0.2-1.0); Blood Urea Nitrogen 8 mg/dl (6-23); Calcium 8.3 mg/dl (8.5-10.1); Carbon Dioxide 23 mmol/L (21-32); Chloride 100 mmol/L (98-107); Est GFR (African American) 114.7 ml/min; Globulin 2.9 gm/dl (2.5-4.0); Glucose 131 mg/dl (70-99(Fasting)); Potassium 3.9 mmol/L (3.5-5.1); Sodium 135 mmol/L (136-145); Total Protein 6.9 gm/dl (6.0-8.3)
[2022-02-03 18:50] LABS: INR 1.1 (0.9-1.1); Partial Thromboplastin Ratio 1.3; Prothrombin Time 11.4 Seconds (9.0-12.0)
[2022-02-03 19:14] LABS: Appearance Urine Clear (Clear); Bilirubin Urine Negative (Negative); Blood Urine Negative (Negative); Color Urine Yellow; Glucose Urine UA Negative (Negative); Ketones Urine 3+ (Negative); Leukocyte Esterase Urine Negative (Negative); Nitrite Urine Negative (Negative); Protein Urine Negative (Negative); Specific Gravity Urine 1.008 (1.000-1.030); Urobilinogen Urine Negative (Negative)
[2022-02-03] MEDS ORDERED: CEFEPIME 2,000 MG/20 ML VIAL IV STA (19:14)
[2022-02-03] MEDS ORDERED: ACETAMINOPHEN 1,000 MG/100 ML VIAL IV STA (19:15)
[2022-02-03] MEDS ORDERED: SODIUM CHLORIDE 0.9% 1000ML 1,000 ML IV ONE (19:16)
--- NOTE | 2022-02-03 19:51 | Emergency Department Note ---
History of Present Illness General Chief complaint: Weakness Stated complaint: WEAKNESS, URINARY SX Time Seen by Provider: 02/03/22 18:48 History of Present Illness This is a 51-year-old male with a history of multiple sclerosis, restless leg syndrome, presence of intrathecal pump, port, penile abnormality, who presents with generalized weakness that started last night accompanied by a cough over the past 3 days. His arms and legs feel heavy. His legs were so weak today that he was unable to move them. Normally he is able to swing them out of his wheelchair. His girlfriend on the phone states that she thought he had some slurred speech earlier today while speaking with him on the phone, patient attributes this to dry mouth for the most part but does admit that he felt like it was a little slurred. He does not have any of that now. He has had chills but denies any true fevers although did not check. Denies any chest pain, shortness of breath, abdominal pain, sinus congestion, sore throat, nausea, vomiting, dysuria, hematuria, difficulty urinating, facial droop, confusion, new numbness or tingling in his upper or lower extremities, or focal weakness. Lives at home alone, is in a wheelchair for mobility. Home Medications Medication Instructions Recorded Confirmed Type cholecalciferol (vitamin D3) 25 2,000 units PO QAM 12/31/17 02/03/22 History mcg (1,000 unit) capsule polyethylene glycol 3350 17 17 g PO DAILY PRN constipation #1 g 02/03/19 02/03/22 History gram/dose oral powder (Miralax) tacrolimus 0.1 % topical ointment 1 applic topical BID PRN rash 05/03/20 02/03/22 History (Protopic) multivitamin 1 tab PO QAM 05/13/20 02/03/22 History Baclofen Pump 200 mcg continuous intrathecal 01/16/21 02/03/22 History infusion CONTINOUS pravastatin 40 mg tablet 40 mg PO PM #90 tabs 05/12/21 02/03/22 Rx compress.stocking,knee,reg,med #2 ea 05/19/21 02/01/22 Rx icosapent ethyl 1 gram capsule 2 g PO BID #360 caps 05/19/21 02/03/22 Rx (Vascepa) baclofen 10 mg tablet 10 mg PO TID PRN spasm #90 tabs 08/22/21 02/03/22 Rx ketoconazole 2 % shampoo 1 applic topical 2XWK #120 mL 10/07/21 02/03/22 Rx ofatumumab 20 mg/0.4 mL 20 mg subcut MONTHLY 10/10/21 02/03/22 History subcutaneous pen injector (Kesimpta Pen) pramipexole 0.25 mg tablet 0.25 mg PO .COMPLEX 90 days #270 12/16/21 02/03/22 Rx tabs tadalafil 10 mg tablet (Cialis) 10 mg PO DAILY PRN sexual activity 01/25/22 02/03/22 Rx #7 tabs Allergies Allergy/AdvReac Type Severity Reaction Status Date / Time duloxetine Allergy Intermediate "FELT VERY Verified 02/03/22 20:07 BAD" grass pollen Allergy Mild Watery Eye Verified 02/03/22 20:07 gluten AdvReac Intermediate Gastrointestinal Verified 02/03/22 20:07 Upset venlafaxine AdvReac Intermediate Hypertensio Verified 02/03/22 20:07 n sertraline AdvReac Unknown Unknown Verified 02/03/22 20:07 Past Med/Surg History Medical History Anxiety and depression Cervical radiculopathy Edema Bilat feet - gets worse throughout the day- chronic and stable Hyperlipidemia Insomnia Multiple sclerosis (10/14/13) Osteoporosis Presence of intrathecal pump Baclofen Restless leg syndrome Spasticity 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 Gets spasticity in left shoulder as well Wheelchair bound Surgical History History of colonoscopy History of esophagogastroduodenoscopy (EGD) History of surgery Pain pump implantation History of vascular access device A-port to left chest for hx of poor vascular access when receiving solumedrol [place] teeth extracted Family History Grandmother (Maternal) Colorectal cancer Grandfather (Maternal) Coronary heart disease Stroke Myocardial infarction Mother Diabetes Uncle Pancreatic cancer Denies family history of Ovarian cancer Prostate cancer Crohn's disease Breast cancer Social History Smoking Status: Former smoker Tobacco Type: Smokeless Tobacco (Dip or Chew) Age Started Using Tobacco: 10; Age Quit Using Tobacco: 22; packs per day: 3; Years Smoked: 12; Cigarettes Per Day: 3 pack at the end -2 years; Second Hand Exposure: No; Hx Alcohol Use: No Hx Substance Use: No Preferred Language: Nepali Communication Ability: Effective Visual Impairment: No Limitations Hearing Ability: Normal Fire Control Mechanic Required: No Beliefs That Will Affect Care: None marital status: / Current Living Situation: Alone current occupational status: disabled 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 and A total of 10 systems reviewed and were otherwise negative Physical Exam Vital Signs Vital Signs - 24 hr 02/03/22 17:52 02/03/22 18:15 02/03/22 18:15 Temperature 99.9 F H Temperature Source Oral Pulse Rate [Apical] 125 H Respiratory Rate 26 H Respiratory Effort / Characteristics Non-Labored Respiratory Depth Normal Blood Pressure [Right Arm] 129/90 Blood Pressure Mean [Right Arm] 103 Blood Pressure Position [Right Arm] Lying Pulse Oximetry 94 94 Oxygen Delivery Method Room Air Room Air Sepsis Recent Fever Within 48 Hours Yes Sepsis New/Unexplained Change in Mental Status No Sepsis Action Taken by Nursing No Action Required 02/03/22 18:18 02/03/22 19:35 02/03/22 20:29 Temperature Temperature Source Pulse Rate [Apical] 106 H 96 H Respiratory Rate 20 20 Respiratory Effort / Characteristics Respiratory Depth Blood Pressure [Right Arm] 134/82 103/71 Blood Pressure Mean [Right Arm] 99 81 Blood Pressure Position [Right Arm] Pulse Oximetry 94 92 95 Oxygen Delivery Method Room Air Room Air Room Air Sepsis Recent Fever Within 48 Hours Sepsis New/Unexplained Change in Mental Status Sepsis Action Taken by Nursing 02/03/22 21:14 Temperature Temperature Source Pulse Rate [Apical] 96 H Respiratory Rate 20 Respiratory Effort / Characteristics Non-Labored Respiratory Depth Normal Blood Pressure [Right Arm] 125/70 Blood Pressure Mean [Right Arm] 88 Blood Pressure Position [Right Arm] Pulse Oximetry 95 Oxygen Delivery Method Room Air Sepsis Recent Fever Within 48 Hours Sepsis New/Unexplained Change in Mental Status Sepsis Action Taken by Nursing CONSTITUTIONAL: Well developed, well nourished, fatigued appearing, otherwise appropriate, conversational, pleasant HEAD: Normocephalic, atraumatic. EYES: PERRL, conjunctivae normal, extraocular muscles intact. ENMT: External ears normal. Nose with normal external appearance, no congestion. Oral mucous membranes dry. Oropharynx normal. NECK: Full active range of motion. No rigidity. RESPIRATORY: Breathing unlabored and symmetric. Lung sounds somewhat diminished in the right lateral region, otherwise no rales wheezes or rhonchi appreciated CARDIOVASCULAR: Tachycardic rate and regular rhythm. No murmurs, rubs, or gallops. DP pulses 2+ bilaterally. CHEST: Nontender, no crepitus. ABDOMEN: Normal bowel sounds. Soft, nontender, no peritonitis. No masses. GENITOURINARY: RN satellite communications operator present. No external abnormalities appreciated. Uncircumcised penis. No testicular or epididymal tenderness is appreciated MUSCULOSKELETAL: Patient unable to left leg or toes. Barely able to move right toes, unable to move the right leg. There is 2+ edema in bilateral feet and ankles SKIN: [place], warm, dry. Bilateral feet are slightly erythematous, no wounds or ulcerations appreciated. NEUROLOGIC: Awake, alert, oriented x3. Gaze is conjugate. Face symmetric, speech normal. Slight pronator drift on the left although this is patient's weaker side at baseline. Sensation intact in bilateral lower extremities. Cranial nerves II through XII intact. PSYCHIATRIC: Appropriate. Normal affect Course Administered Medications Enoxaparin Sodium (Enoxaparin Inj 40 Mg/0.4 Ml Syr) 40 mg SQ BID CLARY Stop: 03/05/22 23:44 Last Admin: 02/04/22 09:36 Dose: 40 mg Documented By: Admin: 02/03/22 23:47 Dose: 40 mg Documented By: MCKAY Pramipexole Dihydrochloride (Pramipexole Dihydrochlo 0.25 Mg Tab) 0.5 mg PO HS CLARY Stop: 03/05/22 23:44 Last Admin: 02/03/22 23:48 Dose: 0.5 mg Documented By: MCKAY Pramipexole Dihydrochloride (Pramipexole Dihydrochlo 0.25 Mg Tab) 0.25 mg PO QAM CLARY Stop: 03/06/22 08:59 Last Admin: 02/04/22 08:55 Dose: Not Given Documented By: CG Discontinued Medications Sodium Chloride (Nss) 500 mls @ 999 mls/hr IV .Q31M STA Stop: 02/03/22 18:42 Last Infusion: 02/03/22 18:44 Dose: 0 mls/hr Documented By: Admin: 02/03/22 18:18 Dose: 999 mls/hr Documented By: RUBIN Cefepime HCl (Maxipime) 2,000 mg in 20 mls @ 5 mls/min IV NOW STA; Protocol Stop: 02/03/22 19:17 Last Admin: 02/03/22 19:30 Dose: 5 mls/min Documented By: STEPHAN Acetaminophen (Ofirmev) 1,000 mg in 100 mls @ 400 mls/hr IV NOW STA Stop: 02/03/22 19:29 Last Infusion: 02/03/22 19:46 Dose: 0 mls/hr Documented By: Admin: 02/03/22 19:31 Dose: 400 mls/hr Documented By: STEPHAN Sodium Chloride (Nss 1000ml) 1,000 mls @ 999 mls/hr IV .Q1H1M ONE Stop: 02/03/22 20:16 Last Infusion: 02/03/22 20:46 Dose: 0 mls/hr Documented By: Admin: 02/03/22 19:31 Dose: 999 mls/hr Documented By: STEPHAN Methylprednisolone 125 mg/ (Syringe) 2 mls @ 1.5 mls/min IV Q6 CLARY Stop: 03/06/22 00:00 Last Admin: 02/04/22 05:16 Dose: 1.5 mls/min Documented By: Admin: 02/03/22 23:48 Dose: 1.5 mls/min Documented By: MCKAY Medical Decision Making Differential Diagnosis Viral upper respiratory infection, pneumonia, sepsis, Guillain-Hernández syndrome, CVA, TIA, UTI, MS flare, discitis, transverse myelitis, cauda equina, pyelonephritis, electrolyte imbalance, among other pathology Medical Records Attestation: I reviewed the patient's medical records. Laboratory Data Result diagrams: 02/04/22 05:38 02/04/22 05:38 Lab Results 02/03/22 02/03/22 02/03/22 Range/Units 18:08 18:08 18:08 WBC 4.59 L (4.8-10.8) K/ul RBC 5.16 (4.63-6.08) M/uL Hgb 15.6 (14.0-18.0) g/dl Hct 46.2 (40.1-51.0) % MCV 89.5 (80.0-100.0) fL MCH 30.2 (25.0-34.0) pg MCHC 33.8 (32.0-36.0) g/dL RDW Std Deviation 44.6 (36.4-46.3) fL RDW Coeff of Ray 13.6 (11.5-14.5) % Plt Count 184 (130-400) K/uL MPV 10.3 (9.4-12.4) fL Immature Gran % (Auto) 0.2 % Neut % (Auto) 77.6 % Lymph % (Auto) 8.3 % [place] % (Auto) 13.5 % Eos % (Auto) 0.2 % Baso % (Auto) 0.2 % Neut # (Auto) 3.56 (1.4-6.5) K/uL Lymph # (Auto) 0.38 L (1.2-3.4) K/uL [place] # (Auto) 0.62 (0.24-0.82) K/uL Eos # (Auto) 0.01 (0-0.50) K/uL Baso # (Auto) 0.01 (0-0.2) K/uL Immature Gran # (Auto) 0.01 (0.00-0.02) K/uL PT 11.4 (9.0-12.0) Seconds INR 1.1 (0.9-1.1) APTT 35.0 H (21.0-31.0) Seconds PTT Ratio 1.3 Sodium 135 L (136-145) mmol/L Potassium 3.9 (3.5-5.1) mmol/L Chloride 100 (98-107) mmol/L Carbon Dioxide 23 (21-32) mmol/L Anion Gap 12 H (3-11) BUN 8 (6-23) mg/dl Creatinine 0.89 (0.6-1.4) mg/dl Est Cr Clr Drug Dosing Not Reportable Est GFR ( Amer) 114.7 ml/min Est GFR (Non-Af Amer) 99.0 ml/min BUN/Creatinine Ratio 9.0 L (10-20) Glucose 131 H (70-99(Fasting)) mg/dl Lactate (0.4-2.0) mmol/L Calcium 8.3 L (8.5-10.1) mg/dl Magnesium 2.0 (1.7-2.4) mg/dl Total Bilirubin 0.5 (0.2-1.0) mg/dl AST 31 (13-39) U/L ALT 27 (7-52) U/L Alkaline Phosphatase 98 (34-104) U/L Total Protein 6.9 (6.0-8.3) gm/dl Albumin 4.0 (3.4-5.0) gm/dl Globulin 2.9 (2.5-4.0) gm/dl Albumin/Globulin Ratio 1.4 (0.9-2) Procalcitonin (0-0.5) ng/ml Urine Color Urine Appearance (Clear) Urine pH (4.5-7.5) Ur Specific [place] (1.000-1.030) Urine Protein (Negative) Urine Glucose (UA) (Negative) Urine Ketones (Negative) Urine Blood (Negative) Urine Nitrite (Negative) Urine Bilirubin (Negative) Urine Urobilinogen (Negative) Ur Leukocyte Esterase (Negative) SARS-CoV-2 (PCR) (Negative) Influenza Type A (PCR) (Neg) Influenza Type B (PCR) (Neg) RSV (RT-PCR) (Neg) 02/03/22 02/03/22 02/03/22 Range/Units 18:08 18:08 18:30 WBC (4.8-10.8) K/ul RBC (4.63-6.08) M/uL Hgb (14.0-18.0) g/dl Hct (40.1-51.0) % MCV (80.0-100.0) fL MCH (25.0-34.0) pg MCHC (32.0-36.0) g/dL RDW Std Deviation (36.4-46.3) fL RDW Coeff of Ray (11.5-14.5) % Plt Count (130-400) K/uL MPV (9.4-12.4) fL Immature Gran % (Auto) % Neut % (Auto) % Lymph % (Auto) % [place] % (Auto) % Eos % (Auto) % Baso % (Auto) % Neut # (Auto) (1.4-6.5) K/uL Lymph # (Auto) (1.2-3.4) K/uL [place] # (Auto) (0.24-0.82) K/uL Eos # (Auto) (0-0.50) K/uL Baso # (Auto) (0-0.2) K/uL Immature Gran # (Auto) (0.00-0.02) K/uL PT (9.0-12.0) Seconds INR (0.9-1.1) APTT (21.0-31.0) Seconds PTT Ratio Sodium (136-145) mmol/L Potassium (3.5-5.1) mmol/L Chloride (98-107) mmol/L Carbon Dioxide (21-32) mmol/L Anion Gap (3-11) BUN (6-23) mg/dl Creatinine (0.6-1.4) mg/dl Est Cr Clr Drug Dosing Est GFR ( Amer) ml/min Est GFR (Non-Af Amer) ml/min BUN/Creatinine Ratio (10-20) Glucose (70-99(Fasting)) mg/dl Lactate 0.8 (0.4-2.0) mmol/L Calcium (8.5-10.1) mg/dl Magnesium (1.7-2.4) mg/dl Total Bilirubin (0.2-1.0) mg/dl AST (13-39) U/L ALT (7-52) U/L Alkaline Phosphatase (34-104) U/L Total Protein (6.0-8.3) gm/dl Albumin (3.4-5.0) gm/dl Globulin (2.5-4.0) gm/dl Albumin/Globulin Ratio (0.9-2) Procalcitonin < 0.05 (0-0.5) ng/ml Urine Color Yellow Urine Appearance Clear (Clear) Urine pH 6.0 (4.5-7.5) Ur Specific [place] 1.008 (1.000-1.030) Urine Protein Negative (Negative) Urine Glucose (UA) Negative (Negative) Urine Ketones 3+ H (Negative) Urine Blood Negative (Negative) Urine Nitrite Negative (Negative) Urine Bilirubin Negative (Negative) Urine Urobilinogen Negative (Negative) Ur Leukocyte Esterase Negative (Negative) SARS-CoV-2 (PCR) (Negative) Influenza Type A (PCR) (Neg) Influenza Type B (PCR) (Neg) RSV (RT-PCR) (Neg) 02/03/22 Range/Units 19:34 WBC (4.8-10.8) K/ul RBC (4.63-6.08) M/uL Hgb (14.0-18.0) g/dl Hct (40.1-51.0) % MCV (80.0-100.0) fL MCH (25.0-34.0) pg MCHC (32.0-36.0) g/dL RDW Std Deviation (36.4-46.3) fL RDW Coeff of Ray (11.5-14.5) % Plt Count (130-400) K/uL MPV (9.4-12.4) fL Immature Gran % (Auto) % Neut % (Auto) % Lymph % (Auto) % [place] % (Auto) % Eos % (Auto) % Baso % (Auto) % Neut # (Auto) (1.4-6.5) K/uL Lymph # (Auto) (1.2-3.4) K/uL [place] # (Auto) (0.24-0.82) K/uL Eos # (Auto) (0-0.50) K/uL Baso # (Auto) (0-0.2) K/uL Immature Gran # (Auto) (0.00-0.02) K/uL PT (9.0-12.0) Seconds INR (0.9-1.1) APTT (21.0-31.0) Seconds PTT Ratio Sodium (136-145) mmol/L Potassium (3.5-5.1) mmol/L Chloride (98-107) mmol/L Carbon Dioxide (21-32) mmol/L Anion Gap (3-11) BUN (6-23) mg/dl Creatinine (0.6-1.4) mg/dl Est Cr Clr Drug Dosing Est GFR ( Amer) ml/min Est GFR (Non-Af Amer) ml/min BUN/Creatinine Ratio (10-20) Glucose (70-99(Fasting)) mg/dl Lactate (0.4-2.0) mmol/L Calcium (8.5-10.1) mg/dl Magnesium (1.7-2.4) mg/dl Total Bilirubin (0.2-1.0) mg/dl AST (13-39) U/L ALT (7-52) U/L Alkaline Phosphatase (34-104) U/L Total Protein (6.0-8.3) gm/dl Albumin (3.4-5.0) gm/dl Globulin (2.5-4.0) gm/dl Albumin/Globulin Ratio (0.9-2) Procalcitonin (0-0.5) ng/ml Urine Color Urine Appearance (Clear) Urine pH (4.5-7.5) Ur Specific [place] (1.000-1.030) Urine Protein (Negative) Urine Glucose (UA) (Negative) Urine Ketones (Negative) Urine Blood (Negative) Urine Nitrite (Negative) Urine Bilirubin (Negative) Urine Urobilinogen (Negative) Ur Leukocyte Esterase (Negative) SARS-CoV-2 (PCR) POSITIVE A* (Negative) Influenza Type A (PCR) Negative (Neg) Influenza Type B (PCR) Negative (Neg) RSV (RT-PCR) Negative (Neg) Imaging Data Radiologist's Impression: Chest X-Ray 02/03/22 19:13 SINGLE VIEW CHEST CLINICAL HISTORY: Cough FINDINGS: An AP, portable, upright chest radiograph is compared to study dated 06/29/2021 and correlated with chest CT dated 03/04/2017. The examination is degraded by portable technique and patient rotation. A left subclavian central venous infusion port is unchanged in position. The cardiomediastinal silhouette is unremarkable. There is chronic elevation of the left hemidiaphragm and bibasilar atelectasis. The lungs and pleural spaces are otherwise clear. No pneumothorax is seen. The skeletal structures are osteopenic. The bony thorax is grossly intact. IMPRESSION: No active disease in the chest. ACT 112: Negative or not required by law. Electronically signed by: Rolan Quinonez M.D. 02/03/2022 7:[address] 02/03/22 19:14 CT SCAN OF THE BRAIN WITHOUT IV CONTRAST CLINICAL HISTORY: Generalized weakness. COMPARISON STUDY: MRI of the brain dated 02/14/2021. TECHNIQUE: Unenhanced axial CT scan of the brain is performed from the vertex to the skull base. A dose lowering technique was utilized adhering to the principles of ALARA. CT DOSE: 1459.56 mGycm FINDINGS: Brain parenchyma: There is minimal microangiopathic change. There is no hemorrhage, mass effect, or evidence of acute territorial ischemia by CT criteria. [place]-white matter differentiation is preserved. No extra-axial fluid collection is seen. Ventricles, sulci, cisterns: Normal in configuration. Intracranial vasculature: The visualized intracranial vasculature at the skull base is normal in appearance. Calvarium: Unremarkable. Sinuses and mastoids: The visualized paranasal sinuses are clear. The mastoid air cells are well pneumatized. Orbits: The bony orbits are grossly intact. IMPRESSION: No acute intracranial abnormality. ACT 112: Negative or not required by law. Electronically signed by: Rolan Quinonez M.D. 02/03/2022 8:15 PM MDM Narrative 51-year-old male with a history of MS and additional past medical history described above presents with generalized weakness and a cough. Patient was initially tachycardic in the 120s and temperature was 99.9. He is somewhat fatigued appearing although was oriented, otherwise nontoxic. He does have significant weakness in upper and lower extremities, can barely move his toes cannot lift his legs off the stretcher. There was some pronator drift identi fied in the left arm which was felt to be secondary to his MS baseline weakness and given many of his symptoms pointing towards an infectious etiology, did not feel an acute stroke work-up was indicated which was confirmed by ED attending Dr. Waters. Patient was given 1.5 L NSS bolus and heart rate improved into the 90s. Empiric dose of cefepime administered as well as IV Tylenol. Chest x-ray is negative for acute process. Head CT is clear. Labs demonstrate a mild leukopenia which could be viral. Anion gap slightly elevated, no additional significant lab abnormalities. Urine shows no evidence of infection. COVID test is POSITIVE. Suspect this to be the etiology of his symptoms. Due to profound weakness and high risk for progression of dsiease, case was discussed with Dr. Hicks Hospitalist who agrees to admit the patient for ongoing management. Impression & Plan COVID-19, Generalized weakness Discharge Plan Visit Data Chief Complaint: Weakness Stated Complaint: WEAKNESS, URINARY SX ED Provider: Rolan Waters ED Midlevel Provider: Emeka Phillips Discharge Problem: COVID-19, Generalized weakness Patient Disposition: Admitted As Inpatient Condition: Fair Discharge Instructions Interventions: ED Discharge Assessment Last Done: 02/03/22 22:46
--- NOTE | 2022-02-03 19:53 | XRay Report ---
SINGLE VIEW CHEST CLINICAL HISTORY: Cough FINDINGS: An AP, portable, upright chest radiograph is compared to study dated 06/29/2021 and correlat ed with chest CT dated 03/04/2017. The examination is degraded by portable technique and patient rota tion. A left subclavian central venous infusion port is unchanged in position. The cardiomediastinal silhouette is unremarkable. There is chronic elevation of the left hemidiaphragm and bibasilar atelec tasis. The lungs and pleural spaces are otherwise clear. No pneumothorax is seen. The skeletal struct ures are osteopenic. The bony thorax is grossly intact. IMPRESSION: No active disease in the chest. ACT 112: Negative or not required by law. Electronically signed by: Rolan Quinonez M.D. 02/03/2022 7:52 PM
--- NOTE | 2022-02-03 20:18 | CT Scan Report ---
CT SCAN OF THE BRAIN WITHOUT IV CONTRAST CLINICAL HISTORY: Generalized weakness. COMPARISON STUDY: MRI of the brain dated 02/14/2021. TECHNIQUE: Unenhanced axial CT scan of the brain is performed from the vertex to the skull base. A d ose lowering technique was utilized adhering to the principles of ALARA. CT DOSE: 1459.56 mGycm FINDINGS: Brain parenchyma: There is minimal microangiopathic change. There is no hemorrhage, mass effect, or e vidence of acute territorial ischemia by CT criteria. [place]-white matter differentiation is preserved. No extra-axial fluid collection is seen. Ventricles, sulci, cisterns: Normal in configuration. Intracranial vasculature: The visualized intracranial vasculature at the skull base is normal in appe arance. Calvarium: Unremarkable. Sinuses and mastoids: The visualized paranasal sinuses are clear. The mastoid air cells are well pneu matized. Orbits: The bony orbits are grossly intact. IMPRESSION: No acute intracranial abnormality. ACT 112: Negative or not required by law. Electronically signed by: Rolan Quinonez M.D. 02/03/2022 8:15 PM
[2022-02-03 20:25] LABS: Influenza A virus by PCR Negative (Neg); Influenza B virus by PCR Negative (Neg); RSV by PCR Negative (Neg)
[2022-02-03 20:29] LABS: SARS CoV2 RNA(COVID-19) InHosp POSITIVE (Negative)
--- NOTE | 2022-02-03 21:10 | Emergency Department Note ---
ED Visit Note I was consulted by the Advanced Practice Provider. I saw the patient personally and performed a substantive portion of the visit. This includes aspects of the HPI, MDM, diagnostic interpretations, and disposition/plan. The patient presents with weakness. There was concern for sepsis. A septic work-up was performed. He appears to have COVID-19 as the cause for his complaints. Admission is warranted. .
--- NOTE | 2022-02-03 22:03 | History & Physical Report ---
Date of Service February 03, 2022 Assessment & Plan (1) COVID-19: Plan: 51 yo male with progressive MS on Ofatumumab therapy presenting with Covid-19 infection as well as diffuse generalized weakness with inability to perform ADLs. Patient lives alone. 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 He has had 2 days of progressive weakness - inability to care for himself at home. Possibly secondary to Covid-19 infection, concerning for MS flare in setting of acute infection. Patient is stable from a respiratory standpoint at this time. Oxygen levels are adequate on room air. -Admit to medical -Maintain isolation precautions -Check Ferritin, LDH and CRP with next blood draw -Monitor respiratory status -Tylenol PRN pain or fever -Zofran PRN nausea -Lovenox 40 BID for DVT prevention (2) Multiple sclerosis: Plan: Concern for flare of MS in setting of Covid-19 infection -Treatment with IV Solumedrol 500mg daily - will divide into 125mg QID -Continue Baclofen -Consider Neurology consultation (3) Dyslipidemia: Plan: Chronic. Stable on medications. Last lipid panel 12/15/21 at goal -Continue Pravastatin 40mg po daily (4) Restless leg syndrome: Plan: Chronic. On medication -Continue Mirapex at home dosing History of Present Illness Chief Complaint: weakness Primary Care Provider: Russell Malone MD Mr. Popeye Vines is a pleasant 51yo male with history of progressive MS with chronic spastic quadriparesis, neurogenic bowel and bladder. He is presently on treatment with Ofatumumab and has an intrathecal Baclofen pump in place. 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 He typically cares for himself, performs transfers without assistance. He follows with Dr. Abreu, last seen on 12/13/21. He reports two days of dry cough and progressive weakness. His weakness is severe and he is unable to lift his legs or transfer. He feels that his weakness is similar to prior flares of MS. Per ER documentation - patient's girlfriend thought he had some slurred speech prior to arrival - though to be secondary to dry mouth. He is not vaccinated against Covid-19 He denies fever, chills, shortness of breath, abdominal pain, nausea, vomiting, diarrhea or constipation. He reports he is eating well. No additional complaints at this time. Upon arrival patient with elevated temperature at 37.7, tachycardic at 125, tachypneic at 26. His saturations have been adequate on room air. ER Course: Cefepime, Tylenol, NSS 1500mL Allergies Allergy/AdvReac Type Severity Reaction Status Date / Time duloxetine Allergy Intermediate "FELT VERY Verified 02/03/22 20:07 BAD" grass pollen Allergy Mild Watery Eye Verified 02/03/22 20:07 gluten AdvReac Intermediate Gastrointestinal Verified 02/03/22 20:07 Upset venlafaxine AdvReac Intermediate Hypertensio Verified 02/03/22 20:07 n sertraline AdvReac Unknown Unknown Verified 02/03/22 20:07 Home Medications Medication Instructions Recorded Confirmed Type cholecalciferol (vitamin D3) 25 2,000 units PO QAM 12/31/17 02/03/22 History mcg (1,000 unit) capsule polyethylene glycol 3350 17 17 g PO DAILY PRN constipation #1 g 02/03/19 02/03/22 History gram/dose oral powder (Miralax) tacrolimus 0.1 % topical ointment 1 applic topical BID PRN rash 05/03/20 02/03/22 History (Protopic) multivitamin 1 tab PO QAM 05/13/20 02/03/22 History Baclofen Pump 200 mcg continuous intrathecal 01/16/21 02/03/22 History infusion CONTINOUS pravastatin 40 mg tablet 40 mg PO PM #90 tabs 05/12/21 02/03/22 Rx compress.stocking,knee,reg,med #2 ea 05/19/21 02/01/22 Rx icosapent ethyl 1 gram capsule 2 g PO BID #360 caps 05/19/21 02/03/22 Rx (Vascepa) baclofen 10 mg tablet 10 mg PO TID PRN spasm #90 tabs 08/22/21 02/03/22 Rx ketoconazole 2 % shampoo 1 applic topical 2XWK #120 mL 10/07/21 02/03/22 Rx ofatumumab 20 mg/0.4 mL 20 mg subcut MONTHLY 10/10/21 02/03/22 History subcutaneous pen injector (Kesimpta Pen) pramipexole 0.25 mg tablet 0.25 mg PO .COMPLEX 90 days #270 12/16/21 02/03/22 Rx tabs tadalafil 10 mg tablet (Cialis) 10 mg PO DAILY PRN sexual activity 01/25/22 02/03/22 Rx #7 tabs Past Med/Surg History Medical History Anxiety and depression Cervical radiculopathy Edema Bilat feet - gets worse throughout the day- chronic and stable Hyperlipidemia Insomnia Multiple sclerosis (10/14/13) Osteoporosis Presence of intrathecal pump Baclofen Restless leg syndrome Spasticity 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 Gets spasticity in left shoulder as well Wheelchair bound Surgical History History of colonoscopy History of esophagogastroduodenoscopy (EGD) History of surgery Pain pump implantation History of vascular access device A-port to left chest for hx of poor vascular access when receiving solumedrol [place] teeth extracted Family History Grandmother (Maternal) Colorectal cancer Grandfather (Maternal) Coronary heart disease Stroke Myocardial infarction Mother Diabetes Uncle Pancreatic cancer Denies family history of Ovarian cancer Prostate cancer Crohn's disease Breast cancer Social History Smoking Status: Never smoker Tobacco Type: Smokeless Tobacco (Dip or Chew) Age Started Using Tobacco: 10; Age Quit Using Tobacco: 22; packs per day: 3; Years Smoked: 12; Cigarettes Per Day: 3 pack at the end -2 years; Second Hand Exposure: No; Hx Alcohol Use: Yes Alcohol type: beer and hard liquor Hx Substance Use: No Preferred Language: Polish Communication Ability: Effective Visual Impairment: No Limitations Hearing Ability: Normal Machine 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 Required: No Beliefs That Will Affect Care: None marital status: / current occupational status: disabled 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 [employer] Feels Safe at Home: Yes Childhood Exposure to Second-Hand Smoke: No caffeine: Yes (tea) during the past year weight has: remained stable Dental Care, Regularly: Yes Physical Activity Frequency: Daily Seatbelt Use: always Sunscreen Use: Yes Assistive Devices: Denture - Lower, Glasses and Wheelchair Review of Systems Review of Systems: All systems reviewed & are unremarkable except as noted in HPI & below Physical Exam Physical Exam: General: patient resting comfortably, NAD, non-toxic in appearance, AA&O x 4 Skin: warm, dry, intact, no rashes or lesions HEENT: NC/AT, PERRL, EOMI, anicteric sclera, conjunctiva without injection, external ear normal to inspection and nontender, nares patent, moist mucus membranes, dentition intact, no oropharyngeal lesions, neck supple, trachea midline, no LAD, no thyromegaly, no JVD Heart: +S1/S2, regular, no m/r/g Lungs: equal air entry bilaterally, no rales/rhonchi/wheezes Abd: +BS, soft, NT/ND, no masses/organomegaly/ascites Ext: warm, 2+ pulses in UE/LE bilaterally, no clubbing/cyanosis, 2+ pitting edema of bilateral LE Neuro: speech clear, spastic paraparesis, unable to move legs, weakness of bilateral UE 4/5 Results & Data Results & Data ([facility]) Vital Signs (Past 12 Hours) Vital Signs Temp Pulse Resp BP Pulse Ox O2 Del Method 02/03/22 21:14 96 H 20 125/70 95 Room Air 02/03/22 20:29 96 H 20 103/71 95 Room Air 02/03/22 19:35 106 H 20 134/82 92 Room Air 02/03/22 18:18 94 Room Air 02/03/22 18:15 37.7 C H 125 H 26 H 129/90 94 Room Air 02/03/22 18:15 94 Room Air Laboratory Results Laboratory Results WBC 4.59 K/ul (4.8-10.8) L 02/03/22 18:08 RBC 5.16 M/uL (4.63-6.08) 02/03/22 18:08 Hgb 15.6 g/dl (14.0-18.0) 02/03/22 18:08 Hct 46.2 % (40.1-51.0) 02/03/22 18:08 MCV 89.5 fL (80.0-100.0) 02/03/22 18:08 MCH 30.2 pg (25.0-34.0) 02/03/22 18:08 MCHC 33.8 g/dL (32.0-36.0) 02/03/22 18:08 RDW Std Deviation 44.6 fL (36.4-46.3) 02/03/22 18:08 RDW Coeff of Ray 13.6 % (11.5-14.5) 02/03/22 18:08 Plt Count 184 K/uL (130-400) 02/03/22 18:08 MPV 10.3 fL (9.4-12.4) 02/03/22 18:08 Immature Gran % (Auto) 0.2 % 02/03/22 18:08 Neut % (Auto) 77.6 % 02/03/22 18:08 Lymph % (Auto) 8.3 % 02/03/22 18:08 [place] % (Auto) 13.5 % 02/03/22 18:08 Eos % (Auto) 0.2 % 02/03/22 18:08 Baso % (Auto) 0.2 % 02/03/22 18:08 Neut # (Auto) 3.56 K/uL (1.4-6.5) 02/03/22 18:08 Lymph # (Auto) 0.38 K/uL (1.2-3.4) L 02/03/22 18:08 [place] # (Auto) 0.62 K/uL (0.24-0.82) 02/03/22 18:08 Eos # (Auto) 0.01 K/uL (0-0.50) 02/03/22 18:08 Baso # (Auto) 0.01 K/uL (0-0.2) 02/03/22 18:08 Immature Gran # (Auto) 0.01 K/uL (0.00-0.02) 02/03/22 18:08 PT 11.4 Seconds (9.0-12.0) 02/03/22 18:08 INR 1.1 (0.9-1.1) 02/03/22 18:08 APTT 35.0 Seconds (21.0-31.0) H 02/03/22 18:08 PTT Ratio 1.3 02/03/22 18:08 Sodium 135 mmol/L (136-145) L 02/03/22 18:08 Potassium 3.9 mmol/L (3.5-5.1) 02/03/22 18:08 Chloride 100 mmol/L (98-107) 02/03/22 18:08 Carbon Dioxide 23 mmol/L (21-32) 02/03/22 18:08 Anion Gap 12 (3-11) H 02/03/22 18:08 BUN 8 mg/dl (6-23) 02/03/22 18:08 Creatinine 0.89 mg/dl (0.6-1.4) 02/03/22 18:08 Est Cr Clr Drug Dosing Not Reportable 02/03/22 18:08 Est GFR ( Amer) 114.7 ml/min 02/03/22 18:08 Est GFR (Non-Af Amer) 99.0 ml/min 02/03/22 18:08 BUN/Creatinine Ratio 9.0 (10-20) L 02/03/22 18:08 Glucose 131 mg/dl (70-99(Fasting)) H 02/03/22 18:08 Lactate 0.8 mmol/L (0.4-2.0) 02/03/22 18:08 Calcium 8.3 mg/dl (8.5-10.1) L 02/03/22 18:08 Magnesium 2.0 mg/dl (1.7-2.4) 02/03/22 18:08 Total Bilirubin 0.5 mg/dl (0.2-1.0) 02/03/22 18:08 AST 31 U/L (13-39) 02/03/22 18:08 ALT 27 U/L (7-52) 02/03/22 18:08 Alkaline Phosphatase 98 U/L (34-104) 02/03/22 18:08 Total Protein 6.9 gm/dl (6.0-8.3) 02/03/22 18:08 Albumin 4.0 gm/dl (3.4-5.0) 02/03/22 18:08 Globulin 2.9 gm/dl (2.5-4.0) 02/03/22 18:08 Albumin/Globulin Ratio 1.4 (0.9-2) 02/03/22 18:08 Procalcitonin < 0.05 ng/ml (0-0.5) 02/03/22 18:08 Urine Color Yellow 02/03/22 18:30 Urine Appearance Clear (Clear) 02/03/22 18:30 Urine pH 6.0 (4.5-7.5) 02/03/22 18:30 Ur Specific [place] 1.008 (1.000-1.030) 02/03/22 18:30 Urine Protein Negative (Negative) 02/03/22 18:30 Urine Glucose (UA) Negative (Negative) 02/03/22 18:30 Urine Ketones 3+ (Negative) H 02/03/22 18:30 Urine Blood Negative (Negative) 02/03/22 18:30 Urine Nitrite Negative (Negative) 02/03/22 18:30 Urine Bilirubin Negative (Negative) 02/03/22 18:30 Urine Urobilinogen Negative (Negative) 02/03/22 18:30 Ur Leukocyte Esterase Negative (Negative) 02/03/22 18:30 SARS-CoV-2 (PCR) POSITIVE (Negative) A* 02/03/22 19:34 Influenza Type A (PCR) Negative (Neg) 02/03/22 19:34 Influenza Type B (PCR) Negative (Neg) 02/03/22 19:34 RSV (RT-PCR) Negative (Neg) 02/03/22 19:34 Impressions Chest X-Ray 02/03/22 19:13 SINGLE VIEW CHEST CLINICAL HISTORY: Cough FINDINGS: An AP, portable, upright chest radiograph is compared to study dated 06/29/2021 and correlated with chest CT dated 03/04/2017. The examination is degraded by portable technique and patient rotation. A left subclavian central venous infusion port is unchanged in position. The cardiomediastinal silhouette is unremarkable. There is chronic elevation of the left hemidiaphragm and bibasilar atelectasis. The lungs and pleural spaces are otherwise clear. No pneumothorax is seen. The skeletal structures are osteopenic. The bony thorax is grossly intact. IMPRESSION: No active disease in the chest. ACT 112: Negative or not required by law. Electronically signed by: Rolan Quinonez M.D. 02/03/2022 7:[address] 02/03/22 19:14 CT SCAN OF THE BRAIN WITHOUT IV CONTRAST CLINICAL HISTORY: Generalized weakness. COMPARISON STUDY: MRI of the brain dated 02/14/2021. TECHNIQUE: Unenhanced axial CT scan of the brain is performed from the vertex to the skull base. A dose lowering technique was utilized adhering to the principles of ALARA. CT DOSE: 1459.56 mGycm FINDINGS: Brain parenchyma: There is minimal microangiopathic change. There is no hemorrhage, mass effect, or evidence of acute territorial ischemia by CT criteria. [place]-white matter differentiation is preserved. No extra-axial fluid collection is seen. Ventricles, sulci, cisterns: Normal in configuration. Intracranial vasculature: The visualized intracranial vasculature at the skull base is normal in appearance. Calvarium: Unremarkable. Sinuses and mastoids: The visualized paranasal sinuses are clear. The mastoid air cells are well pneumatized. Orbits: The bony orbits are grossly intact. IMPRESSION: No acute intracranial abnormality. ACT 112: Negative or not required by law. Electronically signed by: Rolan Quinonez M.D. 02/03/2022 8:15 PM Code Status & VTE Plan VTE Prophylaxis Plan VTE Prophylaxis will be ordered: Yes PG Care Time/CCT Total # of Minutes Spent Total Time Spent with Patient: Total time spent is greater than 50% in coordination of care (as documented) at patient's floor/unit and/or counseling patient: Coding Level of Care Code 86894 Initial Inpt Care Lvl 3 Diagnoses COVID-19 U07.1 Multiple sclerosis G35 Dyslipidemia E78.5 Restless leg syndrome G25.81
[2022-02-03] MEDS ORDERED: POLYETHYLENE (MIRALAX) 17 GM PACK PO PRN (23:19)
[2022-02-03] MEDS ORDERED: ACETAMINOPHEN 325 MG TAB PO PRN (23:19)
[2022-02-03] MEDS ORDERED: ONDANSETRON INJ 2 MG/ML 2 ML VIAL IV PRN (23:19)
[2022-02-03] MEDS ORDERED: BACLOFEN 10 MG TAB PO PRN (23:19)
[2022-02-03] MEDS ORDERED: BACLOFEN PAIN PUMP IT SCH (23:33)
[2022-02-03] MEDS: ENOXAPARIN INJ 40 MG/0.4 ML SYR SQ SCH (23:47)
[2022-02-03] MEDS: PRAMIPEXOLE DIHYDROCHLO 0.25 MG TAB PO SCH (23:48)
[2022-02-03] MEDS: methylPREDNISolone 125 MG in SYRINGE 0 ML IV SCH (23:48)
[2022-02-04 00:53] LABS: C Reactive Protein 2.04 mg/dl (0-0.5)
[2022-02-04 01:05] LABS: Ferritin 66.8 ng/ml (8-388)
[2022-02-04] MEDS: methylPREDNISolone 125 MG in SYRINGE 0 ML IV SCH (05:16)
[2022-02-04 06:26] LABS: Hematocrit (blood only) 42.7 % (40.1-51.0); Hemoglobin 14.5 g/dl (14.0-18.0); Mean Corpuscular Hemoglobin 30.3 pg (25.0-34.0); Mean Corpuscular Volume 89.3 fL (80.0-100.0); Mean Platelet Volume 10.9 fL (9.4-12.4); Platelet Count 187 K/uL (130-400); RDW Coefficient of Variation 13.7 % (11.5-14.5); Red Blood Count 4.78 M/uL (4.63-6.08); White Blood Count 2.75 K/ul (4.8-10.8)
[2022-02-04 07:25] LABS: BUN Creatinine Ratio 12.6 (10-20); Calcium 7.9 mg/dl (8.5-10.1); Creatinine Clr Calc Pharmacy 116.5 ml/min; Est GFR (African American) 115.8 ml/min; Est GFR (Non-African American) 99.9 ml/min; Potassium 4.4 mmol/L (3.5-5.1)
--- NOTE | 2022-02-04 08:01 | Hospitalist Progress Note ---
Date of Service February 04, 2022 Assessment & Plan (1) COVID-19: Plan: 51 yo male with progressive MS on Ofatumumab therapy presenting with Covid-19 infection as well as diffuse generalized weakness with inability to perform ADLs. Patient lives alone. 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 He has had 2 days of progressive weakness - inability to care for himself at home. secondary to Covid-19 infection, concerning for MS flare in setting of acute infection. Patient is stable from a respiratory standpoint at this time. Oxygen levels are adequate on room air. -Monitor respiratory status -Tylenol PRN pain or fever -Zofran PRN nausea -Lovenox 40 BID for DVT prevention (2) Multiple sclerosis: Plan: Concern for flare of MS in setting of Covid-19 infection -Treatment with IV Solumedrol 1000mg daily - will divide into 250mg QID -Continue Baclofen -Consider Neurology consultation if not improving (3) Dyslipidemia: Plan: Chronic. Stable on medications. Last lipid panel 12/15/21 at goal -Continue Pravastatin 40mg po daily was on icosapent for triglycerides but stopped this week (4) Restless leg syndrome: Plan: Chronic. On medication -Continue Mirapex at home dosing Admission and Anticipated Discharge Date Admission Date: February 03, 2022 Subjective Patient states he feels much better than when he first arrived. He says this reminds him of a previous episode of influenza which exacerbated MS flare at the time. Review of Systems Review of Systems: Moderate distress and fatigue no headache, no visual changes no speech or swallowing issues no chest pain, pressure or palpitations With exertion does have shortness of breath, productive cough no abdominal pain, nausea or vomiting, diarrhea or constipation no dysuria, hematuria or frequency no focal joint pain or swelling no back pain, CVA tenderness or radicular pain no bruising, bleeding or rashes Patient has weakness to his lower extremities he has some tingling to his hands this worsened from baseline no complaints of anxiety or depression.. Physical Exam Physical Exam: The patient appeared well nourished and normally developed. Vital signs as documented. Head exam is normocephalic atraumatic Neck is without JVD, thyromegaly, or carotid bruits. Lungs are dimished at bases no focal air loss Cardiac exam, Rhythm is regular.. No murmurs, rubs or gallops. Abdominal exam reveals normal bowel sounds, soft non tender, no masses Extremities are nonedematous and both LE are only able to move in bed not against gravity Neurologic exam is alert and oriented, no focal loss of strength or sensation Skin is without bruises or rashes Psychologically is without concerns for anxiety or depression.. Results & Data Results & Data ([facility]) Vital Signs (Past 12 Hours) Vital Signs Temp Pulse Pulse Resp BP BP Pulse Ox 02/04/22 04:10 98.1 F 82 18 91/62 L 93 02/04/22 00:00 97.7 F 92 H 14 115/77 91 02/03/22 23:24 97.5 F L 97 H 14 115/77 96 02/03/22 22:46 94 H 20 129/89 93 02/03/22 22:16 96 H 20 106/77 95 02/03/22 21:14 96 H 20 125/70 95 02/03/22 20:29 96 H 20 103/71 95 O2 Del Method 02/04/22 04:10 Room Air 02/04/22 00:00 Room Air 02/03/22 23:24 Room Air 02/03/22 22:46 Room Air 02/03/22 22:16 Room Air 02/03/22 21:14 Room Air 02/03/22 20:29 Room Air PG Care Time/CCT Total # of Minutes Spent Total Time Spent with Patient: Total time spent is greater than 50% in coordination of care (as documented) at patient's floor/unit and/or counseling patient: Coding Level of Care Code 53093 Subseq Hosp Care Lvl 3 Diagnoses COVID-19 U07.1 Multiple sclerosis G35 Dyslipidemia E78.5 Restless leg syndrome G25.81
[2022-02-04] MEDS: PRAMIPEXOLE DIHYDROCHLO 0.25 MG TAB PO SCH ×2 (08:55→19:53)
[2022-02-04] MEDS ORDERED: methylPREDNISolone 125 MG/2 ML VIAL IV SCH (09:00)
[2022-02-04] MEDS: ENOXAPARIN INJ 40 MG/0.4 ML SYR SQ SCH ×2 (09:36→23:07)
[2022-02-04] MEDS ORDERED: guaiFENesin 600 MG TABCR PO ONE (11:00)
[2022-02-04] MEDS ORDERED: HEPARIN 100 UNIT/ML 5ML FLUSH FLUSH PRN (11:09)
[2022-02-04] MEDS: methylPREDNISolone 250 MG in SYRINGE 0 ML IV SCH ×3 (11:49→19:54)
[2022-02-04] MEDS: guaiFENesin 600 MG TABCR PO SCH (19:53)
[2022-02-04] MEDS ORDERED: AMITRIPTYLINE HCL 25 MG TAB PO SCH (21:00)
[2022-02-04] MEDS ORDERED: PRAVASTATIN SOD 40 MG TAB PO SCH (21:00)
[2022-02-05] MEDS: methylPREDNISolone 250mg in D5W 100mL IV SCH ×2 (05:55→11:52)
--- NOTE | 2022-02-05 07:21 | Hospitalist Progress Note ---
Date of Service February 05, 2022 Assessment & Plan (1) COVID-19: Plan: 51 yo male with progressive MS on Ofatumumab therapy presenting with Covid-19 infection as well as diffuse generalized weakness with inability to perform ADLs. Patient lives alone. 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 He has had 2 days of progressive weakness - inability to care for himself at home. secondary to Covid-19 infection, concerning for MS flare in setting of acute infection. Patient is stable from a respiratory standpoint at this time. Oxygen levels are adequate on room air. -Monitor respiratory status -Tylenol PRN pain or fever -Zofran PRN nausea -Lovenox 40 BID for DVT prevention (2) Multiple sclerosis: Plan: Concern for flare of MS in setting of Covid-19 infection -Treatment with IV Solumedrol 1000mg daily - will divide into 250mg QID -Continue Baclofen -Consider Neurology consultation if not improving (3) Dyslipidemia: Plan: Chronic. Stable on medications. Last lipid panel 12/15/21 at goal -Continue Pravastatin 40mg po daily was on icosapent for triglycerides but stopped this week (4) Restless leg syndrome: Plan: Chronic. On medication -Continue Mirapex at home dosing Admission and Anticipated Discharge Date Admission Date: February 03, 2022 Results & Data Results & Data ([facility]) Vital Signs (Past 12 Hours) Vital Signs Temp Pulse Resp BP Pulse Ox O2 Del Method 02/05/22 07:08 98.2 F 95 H 16 148/98 H 95 Room Air 02/05/22 02:53 98.2 F 84 18 136/94 95 Room Air PG Care Time/CCT Total # of Minutes Spent Total Time Spent with Patient: Total time spent is greater than 50% in coordination of care (as documented) at patient's floor/unit and/or counseling patient: Coding Diagnoses COVID-19 U07.1 Multiple sclerosis G35 Dyslipidemia E78.5 Restless leg syndrome G25.81
[2022-02-05] MEDS: ENOXAPARIN INJ 40 MG/0.4 ML SYR SQ SCH (07:43)
[2022-02-05] MEDS: PRAMIPEXOLE DIHYDROCHLO 0.25 MG TAB PO SCH (07:43)
[2022-02-05] MEDS: guaiFENesin 600 MG TABCR PO SCH (07:43)
--- NOTE | 2022-02-05 12:55 | Discharge Summary ---
Date of Service February 05, 2022 Admission HPI Per Admitting Provider Mr. Popeye Vines is a pleasant 51yo male with history of progressive MS with chronic spastic quadriparesis, neurogenic bowel and bladder. He is presently on treatment with Ofatumumab and has an intrathecal Baclofen pump in place. 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 He typically cares for himself, performs transfers without assistance. He follows with Dr. Abreu, last seen on 12/13/21. He reports two days of dry cough and progressive weakness. His weakness is severe and he is unable to lift his legs or transfer. He feels that his weakness is similar to prior flares of MS. Per ER documentation - patient's girlfriend thought he had some slurred speech prior to arrival - though to be secondary to dry mouth. He is not vaccinated against Covid-19 He denies fever, chills, shortness of breath, abdominal pain, nausea, vomiting, diarrhea or constipation. He reports he is eating well. No additional complaints at this time. Upon arrival patient with elevated temperature at 37.7, tachycardic at 125, tachypneic at 26. His saturations have been adequate on room air. ER Course: Cefepime, Tylenol, NSS 1500mL Principal Diagnosis Metabolic encephalopathy COVID infection Multiple sclerosis flare Discharge Exam The patient appeared stable he is chronically limited due to lower extremity weakness from his multiple sclerosis Vital signs as documented. Lungs are clear to auscultation and appear unlabored Cardiac exam, Rhythm is regular.. No murmurs, rubs or gallops. Discharge Data Allergies Allergy/AdvReac Type Severity Reaction Status Date / Time duloxetine Allergy Intermediate "FELT VERY Verified 02/03/22 20:07 BAD" grass pollen Allergy Mild Watery Eye Verified 02/03/22 20:07 gluten AdvReac Intermediate Gastrointestinal Verified 02/03/22 20:07 Upset venlafaxine AdvReac Intermediate Hypertensio Verified 02/03/22 20:07 n sertraline AdvReac Unknown Unknown Verified 02/03/22 20:07 Consultations 02/03/22 23:50 ED Decision to Admit Stat Ordered Studies 02/03/22 19:14 CT head/brain wo con Stat Hospital Course (1) COVID-19: Patient came in with progressive weakness with a COVID positive test. Patient does not seem to have COVID-pneumonia at this time but likely is viral infection causing metabolic encephalopathy with progressive weakness and inability to care for himself at home. Patient did have supportive care here at the hospital did not require oxygen. Symptoms resolved with steroid use which were used for his multiple sclerosis. (2) Multiple sclerosis: Patient's MS flare improved after 2 days of 1000 mg of Solu-Medrol. Patient wished to go home before his third day. Patient follows with Dr. bAreu he is a baclofen pump using as needed baclofen also. He feels he has an outpatient MRI scheduled in the near future and will follow up with Dr. Abreu after that (3) Dyslipidemia: Continue on pravastatin 40 mg a day (4) Restless leg syndrome: Patient uses Mirapex for his restless legs Total Time Total Time Spent Total Time Spent (In Minutes): It required greater than 30 minutes to prepare this patient for discharge Discharge Plan Discharge Items Patient Disposition: Home - Self-Care Reason For Visit: COVID-19, WEAKNESS Discharge Diagnosis: metabolic encephalopathy secondary to covid infection multiple sclerosis flare Condition on Discharge: Fair Activity: Resume your previous activity Activity Comment: off work per company guidelines for covid Non-emergency contact: Primary Care Provider and Neurologist Call non-emergency contact if: your symptoms worsen Follow-up/Referrals: ProRussell MD [Primary Care Provider] - Diet: Regular Addtl Attending Provider Instructions: Coronavirus disease 2019 (COVID-19) is a virus that causes a respiratory illness. It is caused by a coronavirus called 2019 novel coronavirus (2019- nCoV). There are many types of coronavirus. Coronaviruses are a very common cause of bronchitis. They may sometimes cause lung infection(pneumonia). Symptoms can range from mild to severe respiratory illness. These viruses are also foundin some animals. COVID-19 was first found in people in [facility], in late 2019. In 2020, several cases of COVID-19 have been confirmed in the [place] Public health officials are working to find the source. How the virus spreads is not yet fully known. It may be spread through droplets of fluid that a person coughs or sneezes into the air. It may be spread if you touch a surface with virus on it, such as a handle or object, and then touch your mouth. What are the symptoms of COVID-19? Some people have no symptoms or mild symptoms. Symptoms may appear 2 to 14 days after contact with the virus. Symptoms can include: Fever Coughing Trouble breathing What are possible complications from COVID-19? In many cases, this virus can cause infection (pneumonia) in both lungs. In some cases, this can cause . How is COVID-19 diagnosed? Your healthcare provider will ask about your symptoms. He or she will also ask about your recent travel and contact with sick people. Testing for the virus is only done through the CDC. If yourhealthcare provider thinks you may have COVID- 19, he or she will work with your local health department and the CDC on testing. Follow all instructions from your healthcare provider. COVID-19 is diagnosed by: Nasal and throat swab. A cotton-tipped swab is wiped inside your nose or throat. This is done to check for viruses in your nasal mucus. Sputum culture. A small sample of mucus coughed from your lungs (sputum) is collected if you have a cough. It is checked for the virus. How is COVID-19 treated? There is currently no medicine to treat the virus. Treatment is done to help your body while it fights the virus. This is known as supportive care. Supportive care may include: Pain medicine. These include acetaminophen and ibuprofen. They are used to help ease pain and reduce fever. Bed rest. This helps your body fight the illness. For severe illness, you may need to stay in the hospital. Care during severe illness may include: IV (intravenous) fluids.These are given through a vein to help keep your body hydrated. Oxygen. Supplemental oxygen or ventilation with a breathing machine (ventilator) may be given. This is done to keep enough oxygen in your body. Are you at risk for COVID-19? If youve been to a place where people have been sick with this virus, you are at risk for infection. You are at risk if you: Recently traveled to an affected area Had contact with a sick person who recently traveled to this area Had contact with a person who was diagnosed with COVID-19 How can COVID-19 be prevented? There is no vaccine yet. The best prevention is to not have contact with the virus. The CDC advises that people should not travel to areas where there are COVID-19 outbreaks right now for any reason that is not urgent. To help prevent spreading the infection, wash your hands often, or use an alcohol-basedhand software development intern. If you are in an area with COVID-19: Wash your hands often. Or use an alcohol-based hand software development intern often. Only touch your eyes, nose, or mouth with clean hands. Dont have contact with people who are sick. Follow local instructions about being in public. For example, you may be told to not use public transport for a period of time. Stay away from markets that have live or animals. Wash your hands after touching any animals. Don't touch animals that may be sick. Dont share eating or drinking tools with sick people. Dont kiss someone who is sick. Clean surfaces often with disinfectant. If you were in an area with COVID-19 in the last 14 days: Call your healthcare provider. He or she can talk with local health staff to see what action may be needed. Follow all instructions from your provider. Take your temperature every morning and evening for at least 14 days. This is to check for fever. Keep a record of the readings. Keep watch for symptoms of the virus. Tell your provider right away if you have symptoms. If you were in an area with COVID-19 and have a fever or other symptoms: Dont panic. Keep in mind that other illnesses can cause similar symptoms. Stay away from work, school, and public places. Limit physical contact with family members. Don't kiss anyone or share eating or drinking utensils. Clean surfaces you touch with disinfectant. This is to help prevent the virus from spreading. Call your healthcare provider. Explain that you have been exposed to COVID-19 and have symptoms. Do this before going to any hospital. Wait for instructions. Keep in mind that healthcare staff may wear protective equipment such as masks, gowns, gloves, and eye protection. You may be put in a separate room. This is to prevent the possible virus from spreading. Tell the healthcare staff about recent travel. This includes local travel on public transport. Staff may need to find other people you have been in contact with. Follow all instructions the healthcare staff give you. If you have been diagnosed with COVID-19 Follow all instructions from your healthcare provider. Dont leave your home, except to get medical care. Call your healthcare providers office before going. They can prepare and give you instructions. This will help prevent the virus from spreading. Dont go to work, school, or public areas. Dont use public transport or taxis. Stay away from other people in your home. Have them wear face masks around you. Dont share household items or food. Wear a face mask if you can. This includes at home or in a medical facility. Cover your face with a tissue when you cough or sneeze. Throw the tissue away. Wash your hands. Wash your hands often. Caregivers should: Follow all instructions from healthcare staff. Wear a face mask and protective clothing as advised. Wash hands often. Keep track of the sick persons symptoms. Clean surfaces, fabrics, and laundry thoroughly. Keep other people away from the sick person. When to call your healthcare provider Call your healthcare provider: If youve recently traveled and have symptoms If you have been diagnosed with COVID-19 and your symptoms are worse To learn more To find out more about COVID-19, visit the CDC website at www.cdc.gov/coronavirus/2019-ncov/index.html. [employer]. [address] [place] [address]. All rights reserved. This information is not intended as a substitute for professional medical care. Always follow your healthcare professional's instructions. This information has been adapted from [employer] Addtl [employer] Person Provider Instructions: Please discuss stopping your Vascepa with your prescribing doctor Pending Studies at Discharge: No Stand-Alone Forms: My [facility], Smoking Cessation Medications and DC Order Prescriptions: New azithromycin 250 mg tablet See Rx Instructions .ROUTE .COMPLEX Qty: 6 0RF Rx Instructions: For 250 mg dose pack: take 500 mg today (day 1), then 250 mg for 4 days (days 2-5) Continued cholecalciferol (vitamin D3) 1,000 unit capsule 2,000 units PO QAM baclofen 10 mg tablet 10 mg PO TID PRN (Reason: spasm) Qty: 90 1RF pravastatin 40 mg tablet 40 mg PO PM Qty: 90 3RF Vascepa 1 gram capsule 2 g PO BID Qty: 360 3RF pramipexole 0.25 mg tablet 0.25 mg PO .COMPLEX 90 Days Qty: 270 0RF Rx Instructions: 0.25 mg PO TAKE 1 TABLET IN AM AND 2 TABLETS AT BEDTIME; tadalafil [Cialis] 10 mg tablet 10 mg PO DAILY PRN (Reason: sexual activity) Qty: 7 0RF Rx Instructions: administer approximately 30min before sexual activity; do not use more than 1 dose per 24hrs (DME) compress.stocking,knee,reg,med Misc See Rx Instructions .Route Qty: 2 1RF Rx Instructions: On AM Off PM polyethylene glycol 3350 [Miralax] 17 gram/dose powder 17 g PO DAILY PRN (Reason: constipation) Qty: 1 ketoconazole 2 % shampoo 1 applic topical 2XWK Qty: 120 3RF tacrolimus [Protopic] 0.1 % ointment 1 applic TOP BID PRN (Reason: rash) multivitamin Tablet 1 tab PO QAM Baclofen Pump 200 mcg continuous intrathecal infusion CONTINOUS MDD 200 Kesimpta Pen 20 mg/0.4 mL Pen Injector 20 mg SUBCUT MONTHLY Discharge Orders: Discharge Order (Routine); Ordered 02/05/22 Ordered By: Mendoza Bar Admission Data Admit Date/Time: 02/03/22 22:09 Attending Provider: Mendoza Bar Admit Provider: Stacie Hicks Primary Care Provider: Russell Malone Other Providers: Stacie Hicks Coding Level of Care Code D/C DAY MANAGEMENT >30 MINS Diagnoses COVID-19 U07.1 Multiple sclerosis G35 Dyslipidemia E78.5 Restless leg syndrome G25.81
== END 2022-02-05 13:59 | disposition home or self-care (01) | DRG 177 ==
LOC: ED 17:46 → SUATTDRO 22:09 → 2E 22:09